=== PATIENT | female | born 1980 | race Caucasian/White ===

== ENCOUNTER 2017-11-12 17:24 | Outpatient (REF) | payer MEDICAID, SELFPAY ==
--- NOTE | 2017-11-12 16:45 | PAPFT_PTH ---
PATIENT: Aurelia King LOC: [facility]#:[id number] AGE/SX: 37/F ROOM: RE11/12/[address]: Lavonne Dsouza : 1980 BED: DIS: 11/12/2017 SPEC #: [id number] RECD: 11/16/17 12:51 STATUS: XAVI MENDOSA #: [id number] REFUGIO: 11/12/17 16:[address]: Lavonne Dsouza DEPT: [facility] Cytology RECD BY: Mary Silveira ENTERED: 11/16/17 12:51 SP TYPE: PAPFT OTHR DR: Juni Lyles Tissues: 1 - CX/ENDOCX FOR PAP SMEARS Procedures: PAP THIN PREP/UVM Screening HPV DNA PROBE Comments: [id number] (CHLAMYDIA/GC)
[2017-11-17 14:48] LABS: Chlamydia Result Negative; GC Result Negative; Specimen Description SEE COMMENTS
== END 2017-11-12 17:25 ==
LOC: NCHCN 17:24
PROVIDERS: PCP Internal Medicine; Visit Provider Nurse Practitioner
DX: Z11.3 Encounter for screening for infections with a predominantly sexual mode of transmission (principal); Z12.4 Encounter for screening for malignant neoplasm of cervix; Z11.51 Encounter for screening for human papillomavirus (HPV)
CPT/HCPCS: 87491; 87591; 88142; 87624

== ENCOUNTER 2017-12-08 16:32 | Outpatient (REF) | payer MEDICAID, SELFPAY ==
--- NOTE | 2017-12-08 16:26 | ENDO_PTH ---
PATIENT: Aurelia King LOC: [facility] U#:[id number] AGE/SX: 37/F ROOM: RE12/08/[address]: Vahe Arreguin MD : 1980 BED: DIS: 12/08/2017 SPEC #: [id number] RECD: 12/08/17 17:48 STATUS: XAVI REEdyta #: [id number] REFUGIO: 12/08/17 16:[address]: Vahe Arreguin DEPT: Surgical Specimen RECD BY: Mary Silveira ENTERED: 12/08/17 17:49 SP TYPE: Endo OTHR DR: Juni Lyles Tissues: 1 - ENDOCERVICAL BX/CURRETTE Procedures: GROSS AND MICRO LEVEL 4 Comments: [id number] (TISSUE DID NOT SURVIVE PROCESSING PER [facility])
== END 2017-12-08 16:52 ==
LOC: LBN 16:32
PROVIDERS: PCP Internal Medicine; Visit Provider Obstetrics & Gynecology
DX: R87.610 Atypical squamous cells of undetermined significance on cytologic smear of cervix (ASC-US) (principal); Z97.5 Presence of (intrauterine) contraceptive device
CPT/HCPCS: 88305

== ENCOUNTER 2018-11-04 16:56 | Outpatient (REF) | payer MEDICAID, SELFPAY ==
[2018-11-04 20:46] LABS: HCT 42.1 % (36.0-46.0); HGB 14.2 g/dL (12.0-15.5); Mean Corp. HGB Concentration 33.7 g/dL (32.0-36.0); Mean Corpuscular Hemoglobin 28.7 pg (27.0-33.0); Mean Corpuscular Volume 85.1 fL (80-95); Mean Platelet Volume 9.7 fL (8.0-11.0); Platelet Count 333 x1000/uL (130-400); RBC 4.95 m/cumm (4.00-5.20); RBC Distribution Width 12.3 % (11.7-14.6); White Blood Cell Count 6.72 k/cumm (4.4-10.8)
[2018-11-04 21:05] LABS: FREE T4 0.82 ng/dL (0.76-1.46); TSH 0.89 uIU/mL (0.36-3.74)
== END 2018-11-04 17:16 ==
LOC: NCHCN 16:56
PROVIDERS: PCP Internal Medicine; Visit Provider Internal Medicine
DX: R53.83 Other fatigue (principal); R63.5 Abnormal weight gain
CPT/HCPCS: 85027; 84439; 84443

== ENCOUNTER 2019-05-04 02:11 | Outpatient (CLI) | payer MEDICAID, SELFPAY ==
[2019-05-04] MEDS: Normal Saline Flush 10 ML SYR IVP (09:14)
[2019-05-04] MEDS: Gadoterate meglumine 20 ML VIAL 17 ML IVP (09:15)
--- NOTE | 2019-05-04 09:23 | DI.MRI_ITS ---
EXAM: MR IAC BRAIN WO/W CLINICAL HISTORY: VERTIGO, R42, LT AUDITORY CANAL/INNER EAR. TECHNIQUE: Routine multiplanar multisequence MRI was performed of the entire brain plus post gadolin ium T1 axial images. Thin T1 axial and coronal sequences were performed pre and post IV Dotarem thro ugh the internal auditory canals. COMPARISON: No exams were available for comparison FINDINGS: There is mucous retention at the floor of the right maxillary sinus and mucosal thickening of some et hmoid sinuses. The mastoid air cells are clear. There is no evidence of an acoustic neuroma or other CP angle mass. The brain has a normal appearance. No mass, hemorrhage or infarct is seen. The vas cular flow voids appear intact. There are no abnormal high signal lesions in the white matter. Ther e are no abnormal enhancing lesions in the brain or internal auditory canals. The orbits and pituita ry are unremarkable. IMPRESSION: Negative MRI of the brain and internal auditory canals. DATA REPOSITORY:
== END 2019-05-04 02:31 ==
PROVIDERS: PCP Internal Medicine; Visit Provider Internal Medicine
DX: R42 Dizziness and giddiness (principal)
CPT/HCPCS: 70553

== ENCOUNTER 2020-09-19 16:06 | Outpatient (CLI) | payer MEDICAID, SELFPAY ==
[2020-09-20 15:08] LABS: Lyme Ab w Rflx to Lyme Confirm Positive (Negative)
[2020-09-23 15:41] LABS: IgG Immunoblot Negative (Negative); IgM Band(s) p23; IgM Immunoblot Negative (Negative)
== END 2020-09-19 16:07 | disposition home or self-care (01) ==
LOC: LBO 16:07
PROVIDERS: PCP Internal Medicine; Visit Provider Nurse Practitioner Family
DX: S30.861A Insect bite (nonvenomous) of abdominal wall, initial encounter (principal); W57.XXXA Bitten or stung by nonvenomous insect and other nonvenomous arthropods, initial encounter
CPT/HCPCS: 36415; 86617; 86618

== ENCOUNTER 2020-10-08 03:51 | Outpatient (CLI) | payer MEDICAID, SELFPAY ==
[2020-10-09 12:02] LABS: Lyme Ab w Rflx to Lyme Confirm Positive (Negative)
[2020-10-09 16:16] LABS: Lyme IgG Ab Negative (Negative); Lyme IgM Ab Positive (Negative)
== END 2020-10-08 03:52 | disposition home or self-care (01) ==
LOC: LBO 03:51
PROVIDERS: PCP Internal Medicine; Visit Provider Nurse Practitioner Family
DX: R53.83 Other fatigue (principal); S30.861A Insect bite (nonvenomous) of abdominal wall, initial encounter; W57.XXXA Bitten or stung by nonvenomous insect and other nonvenomous arthropods, initial encounter
CPT/HCPCS: 36415; 86617; 86618

== ENCOUNTER 2021-01-06 08:59 | Outpatient (REF) | payer MEDICAID, SELFPAY ==
[2021-01-06 15:08] LABS: HCT 43.6 % (36.0-46.0); HGB 14.2 g/dL (11.2-15.7); MCH 28.1 pg (27.0-33.0); MCHC 32.6 % (32.0-36.0); MCV 86.2 fL (80-95); MPV 9.5 fL (8.0-11.0); Platelet Count 297 10^3/uL (130-400); RBC 5.06 10^6/uL (3.93-5.22); WBC 6.65 10^3/uL (4.4-10.8)
[2021-01-06 15:39] LABS: ALT 76 U/L (14-59); AST 38 U/L (15-37); Albumin 4.1 g/dL (3.4-5.0); Alkaline Phosphatase 109 U/L (46-116); Anion Gap 10.4 mmol/L (3-11); BUN 13 mg/dL (7-18); Bilirubin, Total 0.6 mg/dL (0.2-1.0); CO2 25.6 mmol/L (21.0-32.0); CREATININE 0.9 mg/dL (0.55-1.02); Calcium 8.9 mg/dL (8.5-10.1); Chloride 104 mmol/L (98-107); FREE T4 0.86 ng/dL (0.76-1.46); Glucose 96 mg/dL (74-106); Potassium 4.3 mmol/L (3.5-5.1); Sodium 140 mmol/L (136-145); TSH 0.66 uIU/mL (0.36-3.74)
== END 2021-01-06 09:00 | disposition home or self-care (01) ==
LOC: NCHCN 08:59
PROVIDERS: PCP Internal Medicine; Visit Provider Internal Medicine
DX: R53.83 Other fatigue (principal); F11.20 Opioid dependence, uncomplicated; F90.0 Attention-deficit hyperactivity disorder, predominantly inattentive type
CPT/HCPCS: 80053; 85027; 84439; 84443

== ENCOUNTER 2021-02-10 16:05 | Outpatient (REF) | payer MEDICAID, SELFPAY ==
--- NOTE | 2021-02-10 13:45 | PAPFT_PTH ---
PATIENT: Aurelia King LOC: [facility] U#:[id number] AGE/SX: 40/F ROOM: RE02/10/[address]: Mari Laura NP : 1980 BED: DIS: 02/10/2021 SPEC #: [id number] RECD: 02/10/21 17:51 STATUS: XAVI REQ #: [id number] REFUGIO: 02/10/21 13:[address]: Keya DEVLIN,Mari DEPT: [facility] Cytology RECD BY: Mary Silveira ENTERED: 02/10/21 17:51 SP TYPE: PAPFT OTHR DR: Juni Lyles Tissues: 1 - CX/ENDOCX FOR PAP SMEARS Procedures: PAP THIN PREP/UVM Screening HPV DNA PROBE Comments: [id number]
== END 2021-02-10 16:06 | disposition home or self-care (01) ==
LOC: LBN 16:05
PROVIDERS: PCP Internal Medicine; Visit Provider Nurse Practitioner Women's Health
DX: Z12.4 Encounter for screening for malignant neoplasm of cervix (principal); Z11.51 Encounter for screening for human papillomavirus (HPV); R87.612 Low grade squamous intraepithelial lesion on cytologic smear of cervix (LGSIL); R87.810 Cervical high risk human papillomavirus (HPV) DNA test positive
CPT/HCPCS: 88142; 87624

== ENCOUNTER 2021-03-10 02:20 | Outpatient (CLI) | payer MEDICAID, SELFPAY ==
--- NOTE | 2021-03-10 07:30 | DI.MAMMO_ITS ---
Exam(s) MAMMO SCREENING EXAM: MAMMO SCREENING CLINICAL HISTORY: screening. TECHNIQUE: Bilateral full field digital CC and MLO mammographic images were obtained with 3D tomosyn thesis and utilizing computer aided detection (CAD). COMPARISON: None. This is a baseline screening mammogram on this 41-year-old patient. FINDINGS: There are no CAD designations There are no spiculated masses nor malignant appearing microcalcification groups. Benign microcalcifications noted bilaterally. There is no significant architectural distortion nor skin thickening-retraction. IMPRESSION: No radiographic evidence of malignancy. BI-RADS Category 1 - Negative Breast Density - Category B - Scattered areas of fibroglandular density Breast density Category C or D implies that the patient has dense breast tissue. Dense breast tissue can make it harder to find cancer on a mammogram. Dense breast tissue is also associated with an incr eased risk of breast cancer. This information about the result of the mammogram report was provided to the patient to raise their awareness. Use this report when you speak with the patient about their risks for breast cancer, which includes their family history. At that time, you may recommend additional screening tests (Ultrasoun d or MRI) as these tests may add significant information. A negative radiographic report should not delay biopsy if a dominant or clinically suspicious mass is present. Up to ten percent of cancers are not identified on mammography. A negative report may reinforce clinical impression. Adenosis and dense breasts may obscure an underlying neoplasm. False positive reports average 6 to 10%. Patient will receive a letter notifying them of these results.
== END 2021-03-10 02:40 ==
PROVIDERS: PCP Internal Medicine; Visit Provider Nurse Practitioner Women's Health
DX: Z12.31 Encounter for screening mammogram for malignant neoplasm of breast (principal)
CPT/HCPCS: 77063; 77067

== ENCOUNTER 2021-08-14 14:53 | Emergency (ER) | payer MEDICAID, SELFPAY ==
[2021-08-14 14:57] VITALS: BP 107/68; PULSE 91; RESP 16; TEMP 36.8; O2SAT 99
--- NOTE | 2021-08-14 15:49 | W.ED.GENAD ---
Discharge Plan Disposition Patient Disposition: HOME Condition: Good Discharge Details Clinical Impression: Dog bite of left thigh Primary Care Provider: Juni Lyles ED Provider: Jose Ramon Knapp Home Meds and New Rx's Prescriptions: New amoxicillin-pot clavulanate 875-125 mg tablet 1 tab PO Q12H 5 Days Qty: 10 0RF No Action buprenorphine-naloxone [Suboxone] 1 EACH film 2 film Sublingual DAILY Qty: 2 Label Comments: Mirena 1 EACH intrauterine device 1 ea Intrauterine q5yr Qty: 1 Vyvanse 20 mg capsule 1 cap PO DAILY Label Comments: TAKE ONE CAPSULE BY MOUTH EVERY DAY Discharge Instructions Instructions: Animal Bite (ED) Additional Instructions: It is recommended that you take a probiotic while on your antibiotic. Please take this at least 2 hours after your antibiotic dose. You may continue to take [id number] ibuprofen or Tylenol as needed for discomfort and perform standard wound care with antibiotic ointment for the next 48 hours and then allow wound to be clean and dry. If you develop any new or worsening symptoms or have signs of infection after you finish your antibiotic please return to the emergency department for reassessment or follow-up with your primary care provider. Referrals: Juni Lyles MD [Primary Care Provider] - (As needed for reassessment) Discharge Data Discharge Date/Time-TO BE ENTERED AT DEPARTURE: 08/14/21 16:23 Medical Decision Making Dog bite left anterior distal thigh. No other injury or trauma. 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 We will plan to place patient on Augmentin due to dog bite and high suspicion of potential infection due to bite through dirty work pants. Do not feel that radiological imaging needs to be performed at this time, wound is otherwise clean and dry, acute wound care was discussed with patient along with return and follow-up precautions. After discussion of diagnosis and plan of care patient has no further needs, questions, or concerns and states clear understanding to return to the emergency department for any worsening symptoms. HPI General Mode of arrival: ambulatory. Date/Time Provider Initiated Documentation: 08/14/21 15:02. Limitations to Documentation: no limitations. Information obtained by: patient and RN notes reviewed. History of Present Illness 41 year old F presents to the emergency department with the chief complaint of dog bite at work, left leg, described as mild, with intensity rated at 5. Quality is described as aching, and is localized to the left and lower extremity. Patient reports no radiation. Patient started experiencing this hour(s) (1) and it has been constant. No relieving factors improve symptom(s), No exacerbating factors reported . Patient notes no other symptoms.. Patient did receive the following treatments prior to arrival, none Related Data Home Medications Medication Instructions Recorded Confirmed buprenorphine 8 mg-naloxone 2 mg 2 film sublingual DAILY #2 film 11/23/13 08/14/21 sublingual film (Suboxone) levonorgestrel 20 mcg/24 hours (7 1 ea intrauterine q5yr #1 ea 08/26/16 08/14/21 yrs) 52 mg intrauterine device (Mirena) amoxicillin 875 mg-potassium 1 tab PO Q12H 5 days #10 tabs 08/14/21 clavulanate 125 mg tablet lisdexamfetamine 20 mg capsule 1 cap PO DAILY 08/14/21 08/14/21 (Vyvanse) Previous Rx's Medication Instructions Recorded amoxicillin 875 mg-potassium 1 tab PO Q12H 5 days #10 tabs 08/14/21 clavulanate 125 mg tablet Allergies Allergy/AdvReac Type Severity Reaction Status Date / Time No Known Drug Allergies Allergy Unverified 08/14/21 15:02 General Stated Complaint: AnimalBite BRENDA: 4 Review of Systems Narrative: 6 systems reviewed and are unremarkable except for noted below and HPI Integumentary/Breasts Skin/Breast: Reports as per HPI, Denies erythema, Denies rash and Reports wounds PFSH All Active Problems Dog bite of left thigh (Acute) Low back pain (Acute) Medical History Attention deficit disorder (ADD) in adult Depression Fatigue Herpes labialis HPV (human papilloma virus) anogenital infection Lyme disease Migraine 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/15) ASCUS/HPV+, benign colp 2017 LSIL/HPV+, colp 2020 Opioid dependence Pelvic pain Situational anxiety Surgical History Cholecystectomy (07/15/16) Family History Father Diabetes Social History Smoking/Tobacco Use Status: Never Smoking risk assessment performed?: Yes Alcohol Intake: never Drug use: Never Substance use type: does not use Adopted: No Seatbelt use: always Do you feel safe at home: Yes Do you feel safe in your relationship?: Yes Female Reproductive History Menstrual control method: progestin IUCD Exam Const General: cooperative, no acute distress and not ill appearing Orientation: alert, awake and oriented x3 Resp Effort & Inspection: normal respiratory effort, able to speak in complete sentences and no respiratory distress Skin Trauma: puncture (dog bite 6cm candida to left thigh) Neuro General: patient alert, patient awake, patient oriented x3, moves all extremities and no focal motor deficits Sensory Exam: no sensory deficits noted Course Vital Signs Vital signs: Vital Signs Temperature 36.8 C 08/14/21 14:57 Pulse 91 H 08/14/21 14:57 Respiratory Rate 16 08/14/21 14:57 Blood Pressure 107/68 08/14/21 14:57 Pulse Oximetry 99 08/14/21 14:57 Temperature 36.8 C 08/14/21 14:57 Temperature Source Skin 08/14/21 14:57 Pulse 91 H 08/14/21 14:57 Respiratory Rate 16 08/14/21 14:57 Respiratory Effort 08/14/21 15:01 Blood Pressure 107/68 08/14/21 14:57 Blood Pressure Position Sitting 08/14/21 14:57 Pulse Oximetry 99 08/14/21 14:57 Oxygen Delivery Method Room Air 08/14/21 14:57 Oxygen Flow Rate 0 08/14/21 14:57 Pain Level 5 08/14/21 14:57
[2021-08-14] MEDS: Bacitracin 1 PACKET (16:24)
== END 2021-08-14 16:23 | disposition home or self-care (01) ==
PROVIDERS: Emergency Provider Nurse Practitioner Family; PCP Internal Medicine
DX: S71.152A Open bite, left thigh, initial encounter (principal); W54.0XXA Bitten by dog, initial encounter
CPT/HCPCS: 90471; 99284; 99283

== ENCOUNTER 2022-01-22 00:02 | Emergency (ER) | payer MEDICAID, SELFPAY ==
[2022-01-22 00:08] VITALS: BP 120/71; PULSE 104; RESP 16; TEMP 37.9; O2SAT 99
--- NOTE | 2022-01-22 00:15 | DI.CT_ITS ---
Exam(s) CT NECK W EXAM: CT NECK W CLINICAL HISTORY: throat pain, ?retropharyngeal abscess. TECHNIQUE: Imaging Protocol: Axial computed tomography images with coronal and sagittal reformatted images were created and reviewed. CONTRAST MATERIAL: Intravenous: Omnipaque 350 Contrast volume:100mL COMPARISON: No exams were available for comparison FINDINGS: Orbits and orbital soft tissues: Within normal limits. Visualized paranasal sinuses: There is mild mucosal thickening in the right maxillary sinus. The re maining visualized paranasal sinuses or mastoid air cells are clear. Nasopharynx: There is a small small fluid level of the nasopharynx. There is mild hyperemia of the mucosa in the nasopharynx. Oropharynx: Within normal limits. Hypopharynx: Within normal limits. Larynx: Within normal limits. Retropharyngeal space: Within normal limits. Parotids/submandibular: Within normal limits. Thyroid gland: Within normal limits. Lymphadenopathy: There is scattered lymph nodes seen along the level one to level three all measurin g less than 8 mm in short axis diameter which are physiologic in nature. Trachea: Within normal limits. Lung apices: Within normal limits. Bones: Within normal limits for the patient's age. There is mild reversal of the normal cervical albertina dosis. This may be due to patient positioning. Carotids/Jugular: Within normal limits. Soft tissues: Within normal limits. IMPRESSION: 1. Small fluid level in the nasopharynx and findings suggesting pharyngitis. 2. No focal fluid collection to suggest an abscess. RADIATION DOSE DELIVERED: 355.19mGy.cm Total DLP DATA REPOSITORY: All CT scans at this facility are submitted to the National Radiology Data Registry (NRDR) Dose Index Registry (DIR) with the [employer] (A[employer]). RADIATION OPTIMIZATION: All CT scans at this facility use at least one of these dose optimization te chniques: automated exposure control; mA and/or kV adjustment per patient size (includes targeted exa ms where dose is matched to clinical indication); or iterative reconstruction.
--- NOTE | 2022-01-22 00:24 | ED.GENADUL_ITS ---
Discharge Plan Disposition Patient Disposition: HOME Condition: Stable Discharge Details Clinical Impression: Pharyngitis Primary Care Provider: Juni Lyles ED Provider: Nikos Laura Home Meds and New Rx's Prescriptions: New amoxicillin 500 mg tablet 500 mg PO BID Qty: 20 0RF valacyclovir [Valtrex] 1 gram tablet 2,000 mg PO ONCE Qty: 2 0RF Continued buprenorphine-naloxone [Suboxone] 1 EACH film 2 film Sublingual DAILY Qty: 2 Label Comments: Mirena 1 EACH intrauterine device 1 ea Intrauterine q5yr Qty: 1 Vyvanse 20 mg capsule 1 cap PO DAILY Label Comments: TAKE ONE CAPSULE BY MOUTH EVERY DAY Discharge Instructions Instructions: Pharyngitis (ED) Additional Instructions: if not improving within a week follow up with your primary care provider if you fel more ill, have severe worsening pain or inability to swallow liquids return to the emergency department Medical Decision Making 41 yo female comes in with 3 days of throat pain, body aches and sore throat. she states she went to urgent care wednesday and was diagnosed with flu and started on tamiflu. Despite this she continues to not feel well and throat pain has been worsening so came here. She arrives stable speaking in full sentences in no respiratory distress and swallowing normally. She has clear lungs, midline uvula, posterior pharynx is erythematous, no hot potato voice. She localizes the pain to the posterior pharynx and states it is severe. She has no meninigsmus and full rom of the neck. Suspect this is pharyngitis but given she is stating pain is severe and worsening will obtain ct to evaluate for possible abscess. fluvid negative, labs show wbc of 13 otherwise unremarkable, ct shows no abscess. Given continued throat pain and evidence of pharyngitis on exam will start her on amoxicillin. She states she has a history of cold sores and feels one starting on her lower lip and requests valacyclovir which I will provide. Advised to f/u with pcp, return precautions given Differential Diagnosis Differential Diagnosis: strep, flu, retropharyngeal abscess Medical Records Medical records reviewed: Yes I reviewed the patient's medical records. Imaging Data Radiologic Study: Attestation: I personally reviewed and interpreted this imaging study as follows: Imaging: CT Scan Radiologist's impression: 1. Fluid level in nasopharynx. There appears to be mucosal hyperemia in nasopharynx consistent with pharyngitis. 2. No retropharyngeal fluid collection is seen to suggest retropharyngeal abscess. No peritonsillar abscess. Lab Data Lab results reviewed: Yes I reviewed the patient's lab results. HPI General Mode of arrival: ambulatory . Date/Time Provider Initiated Documentation: 01/22/22 00:03 . Limitations to Documentation: no limitations . Information obtained by: patient . History of Present Illness 41 year old F presents to the emergency department with the chief complaint of sore throat, described as moderate, Patient started experiencing this day(s) (3) and it has been constant. No relieving factors improve symptom(s), No exacerbating factors reported . Patient notes fever/chills. Patient did receive the following treatments prior to arrival, none Related Data Home Medications Medication Instructions Recorded Confirmed buprenorphine 8 mg-naloxone 2 mg 2 film sublingual DAILY #2 film 11/23/13 01/22/22 sublingual film (Suboxone) levonorgestrel 20 mcg/24 hours (8 1 ea intrauterine q5yr #1 ea 08/26/16 01/22/22 yrs) 52 mg intrauterine device (Mirena) lisdexamfetamine 20 mg capsule 1 cap PO DAILY 08/14/21 01/22/22 (Vyvanse) amoxicillin 500 mg tablet 500 mg PO BID #20 tabs 01/22/22 valacyclovir 1 gram tablet 2,000 mg PO ONCE #2 tabs 01/22/22 (Valtrex) Previous Rx's Medication Instructions Recorded amoxicillin 500 mg tablet 500 mg PO BID #20 tabs 01/22/22 valacyclovir 1 gram tablet 2,000 mg PO ONCE #2 tabs 01/22/22 (Valtrex) Allergies Allergy/AdvReac Type Severity Reaction Status Date / Time No Known Drug Allergies Allergy Unverified 01/22/22 00:13 General Stated Complaint: Sorethroat BRENDA: 3 Review of Systems All systems reviewed & are unremarkable except as noted in HPI and below Constitutional Constitutional: Denies weakness ENT Ears, Nose, Mouth, and Throat: Denies change in voice Cardiovascular Cardiovascular: Denies chest pain and Denies dyspnea Respiratory Respiratory: Denies cough and Denies dyspnea Gastrointestinal Gastrointestinal: Denies abdominal pain, Denies nausea and Denies vomiting Genitourinary Genitourinary: Denies dysuria Integumentary/Breasts Skin/Breast: Denies rash Neurologic Neurologic: Denies weakness PFSH All Active Problems (Updated 01/22/22 @ 01:51 by Nikos Laura MD) Pharyngitis (Acute) Low back pain (Acute) Medical History Attention deficit disorder (ADD) in adult Depression Fatigue Herpes labialis HPV (human papilloma virus) anogenital infection Lyme disease Migraine 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/15) ASCUS/HPV+, benign colp 2017 LSIL/HPV+, colp 2020 Opioid dependence Pelvic pain Situational anxiety Surgical History Cholecystectomy (07/15/16) Family History Father Diabetes Social History Smoking/Tobacco Use Status: Never Smoking risk assessment performed?: Yes Alcohol Intake: never Drug use: Never Substance use type: does not use Adopted: No Seatbelt use: always Do you feel safe at home: Yes Do you feel safe in your relationship?: Yes Female Reproductive History Menstrual control method: progestin IUCD Exam Const General: no acute distress Orientation: alert HENMT Head: normal to inspection Ears: external ears normal General nose exam: external nose normal Mouth: moist mucous membranes Eyes General: appearance normal, both eyes and all related structures Neck Neck: normal visual inspection Resp Effort & Inspection: normal respiratory effort and able to speak in complete sentences Cardio Rate: regular rate Skin General skin exam: no rashes or lesions noted Neuro General: patient alert and patient oriented x3 Extrem General: normal to inspection Psych Mental Status: mental status grossly normal Course Vital Signs Vital signs: Vital Signs Temperature 37.9 C H 01/22/22 00:08 Pulse 104 H 01/22/22 00:08 Respiratory Rate 16 01/22/22 00:08 Blood Pressure 120/71 01/22/22 00:08 Pulse Oximetry 99 01/22/22 00:08 Temperature 37.9 C H 01/22/22 00:08 Temperature Source Temporal Artery Scan 01/22/22 00:08 Pulse 104 H 01/22/22 00:08 Respiratory Rate 16 01/22/22 00:08 Respiratory Effort 01/22/22 00:08 Blood Pressure 120/71 01/22/22 00:08 Blood Pressure Position Sitting 01/22/22 00:08 Pulse Oximetry 99 01/22/22 00:08 Oxygen Delivery Method Room Air 01/22/22 00:08 Oxygen Flow Rate 0 01/22/22 00:08 Pain Level 10 01/22/22 00:08 Lab/Test Results Lab/Test Results: POC Strep Test-TOVA(Rapid) Start: 01/22/22 00:20 Freq: .Rapid Strep Test Status: Active Protocol: Document 01/22/22 00:24 CB (Rec: 01/22/22 00:24 [id number]) Strep test-TOVA(Rapid)-POC POC-Strep test-TOVA (Rapid) Negative POC-Strep test-TOVA (Rapid) Negative
[2022-01-22 00:41] LABS: Abs Immature Grans 0.04 10^3/uL (0.0-0.06); Absolute Basophil Count 0.05 10^3/uL (0.0-0.2); Absolute Lymphocyte Count 1.65 10^3/uL (1.2-3.4); Absolute Monocyte Count 0.88 10^3/uL (0.1-0.8); Absolute Neutrophil Count 11.04 10^3/uL (1.2-6.7); Basophils % 0.4; Eosinophils % 0.4; HCT 42.9 % (36.0-46.0); HGB 13.8 g/dL (11.2-15.7); Immature Grans % 0.3; MCH 28.3 pg (27.0-33.0); MCHC 32.2 % (32.0-36.0); MCV 88 fL (80-95); MPV 8.7 fL (8.0-11.0); Monocytes % 6.4; Neutrophils % 80.5; Platelet Count 251 10^3/uL (130-400); RBC 4.88 10^6/uL (3.93-5.22); RDW 12.4 % (11.7-14.6); WBC 13.72 10^3/uL (4.4-10.8)
[2022-01-22 00:48] LABS: Absolute Eosinophil Count 0.05 10^3/uL (0.0-0.7)
[2022-01-22] MEDS: Normal Saline 1,000 ML 1000 ML IV (00:50)
[2022-01-22] MEDS: methylPREDNISolone SUCC 125 MG VIAL IVP (00:50)
[2022-01-22] MEDS: Ketorolac 15 MG/ML VIAL IVP (00:52)
[2022-01-22 00:58] LABS: ALT 114 U/L (14-59); AST 32 U/L (15-37); Albumin 3.4 g/dL (3.4-5.0); Alkaline Phosphatase 158 U/L (46-116); Anion Gap 9.5 mmol/L (3-11); BUN 10 mg/dL (7-18); Bilirubin, Total 0.4 mg/dL (0.2-1.0); CO2 28.5 mmol/L (21.0-32.0); CREATININE 0.8 mg/dL (0.55-1.02); Calcium 8.9 mg/dL (8.5-10.1); Chloride 103 mmol/L (98-107); Estimated GFR 95.46 (mL/min/1.73m2); Glucose 106 mg/dL (74-106); Potassium 3.6 mmol/L (3.5-5.1); Sodium 141 mmol/L (136-145); Total Protein 8.3 g/dL (6.4-8.2)
[2022-01-22] MEDS: Omnipaque 350 MG/ML 100 ML BTL IJ (01:06)
[2022-01-22] MEDS: Normal Saline - Diluent 50 ML VIAL IV (01:07)
[2022-01-22 01:08] LABS: COVID-19 PCR Negative (Negative); Influenza A PCR Negative (Negative); Influenza B PCR Negative (Negative); RSV PCR Negative (Negative); Source Nasopharynx
--- NOTE | 2022-01-22 01:41 | DI.VRAD_ITS ---
PROCEDURE INFORMATION: Exam: CT Neck With Contrast Exam date and time: 01/22/2022 12:53 AM Age: 41 years old Clinical indication: Other: Throat pain, ? retropharyngeal abscess TECHNIQUE: Imaging protocol: Computed tomography of the neck with contrast. Contrast material: 350; Contrast volume: 100 ml; Contrast route: INTRAVENOUS (IV); COMPARISON: MR IAC BRAIN WO/W 05/04/2019 8:33 AM FINDINGS: Pharynx: Fluid level in nasopharynx. There appears to be mucosal hyperemia in nasopharynx consistent with pharyngitis. Larynx: Unremarkable. Epiglottis is normal. Prevertebral and retropharyngeal spaces: Unremarkable. Salivary glands: Normal. Glands are normal in size. Thyroid: Normal. No enlarged or calcified nodules. Lymph nodes: Unremarkable. No lymphadenopathy. Trachea: Visualized trachea is unremarkable. Lungs: Unremarkable as visualized. Bones/joints: Unremarkable. No acute fracture. Soft tissues: No retropharyngeal fluid collection is seen to suggest retropharyngeal abscess. No peritonsillar abscess. Other findings: No abscess collection. IMPRESSION: 1. Fluid level in nasopharynx. There appears to be mucosal hyperemia in nasopharynx consistent with pharyngitis. 2. No retropharyngeal fluid collection is seen to suggest retropharyngeal abscess. No peritonsillar abscess. Dictated and Authenticated by: Alex Archer MD. Ordering:SALLY Knott MD
[2022-01-22] MEDS: valACYclovir 1,000 MG TAB 2000 MG PO (02:20)
[2022-01-22] MEDS: Amoxicillin 500 MG CAP PO (02:20)
[2022-01-22 02:39] VITALS: BP 108/83; PULSE 91; RESP 16; TEMP 36.7; O2SAT 96
== END 2022-01-22 02:36 | disposition home or self-care (01) ==
PROVIDERS: Emergency Provider Emergency Medicine; PCP Internal Medicine
DX: J02.9 Acute pharyngitis, unspecified (principal); Z20.822 Contact with and (suspected) exposure to COVID-19
CPT/HCPCS: 36415; 70491; 80053; 87637; 87880; 96361; 96374; 96375; 99285; 85025; 87081; 99284; J1885; J2930; J3490

== ENCOUNTER 2022-04-03 16:06 | Outpatient (REF) | payer MEDICAID, SELFPAY ==
--- NOTE | 2022-04-03 15:00 | PAPFT_PTH ---
PATIENT: Aurelia King LOC: [facility] U#:[id number] AGE/SX: 42/F ROOM: RE04/03/[address]: Luz Morse CNM : 1980 BED: DIS: 04/03/2022 SPEC #: [id number] RECD: 04/03/22 18:01 STATUS: XAVI REEdyta #: [id number] REFUGIO: 04/03/22 15:[address]: Luz Morse DEPT: [facility] Cytology RECD BY: Mary Silveira ENTERED: 04/03/22 18:01 SP TYPE: PAPFT OTHR DR: Juni Lyles Tissues: 1 - CX/ENDOCX FOR PAP SMEARS Procedures: PAP THIN PREP/UVM Screening HPV DNA PROBE Comments: [id number] (HPV 16 & 18/45) (CA/[facility]ATISHA)
[2022-04-05 14:26] LABS: Chlamydia Result Negative (Negative); GC Result Negative (Negative)
== END 2022-04-03 16:07 | disposition home or self-care (01) ==
LOC: LBN 16:06
PROVIDERS: PCP Internal Medicine; Visit Provider Advanced Practice Midwife
DX: R87.810 Cervical high risk human papillomavirus (HPV) DNA test positive (principal)
CPT/HCPCS: 87491; 87591; 88142; 87624

== ENCOUNTER 2022-04-24 00:55 | Outpatient (CLI) | payer MEDICAID, SELFPAY ==
--- NOTE | 2022-04-24 07:30 | DI.MAMMO_ITS ---
Exam(s) MAMMO SCREENING EXAM: MAMMO SCREENING CLINICAL HISTORY: screening TECHNIQUE: Bilateral full field digital CC and MLO mammographic images were obtained with 3D tomosyn thesis and utilizing computer aided detection (CAD). COMPARISON: Available for comparison. FINDINGS: Masses/Architectural Distortion: None seen. Microcalcifications: No suspicious pleomorphic-type are seen. Skin Thickening/Nipple Retraction: None. IMPRESSION: 1. No significant interval change with no specific features of malignancy noted. 2. Unless there is more urgent need, screening mammography is recommended, as per [employer] guidelines. BI-RADS Category 1 - Negative Breast Density - Category B - Scattered areas of fibroglandular density Breast density category C or D implies that the patient has dense breast tissue. Dense breast tissue is very common and is not abnormal but dense breast tissue can make it harder to find cancer on a ma mmogram. Also, dense breast tissue may increase their breast cancer risk. This information about the result of the mammogram report was provided to the patient to raise their awareness. Use this report when you speak with the patient about their risks for breast cancer, which includes their family hist ory. At that time, you may recommend for more screening tests (Ultrasound or MRI) as they might be us eful based on their risk. A negative radiographic report should not delay biopsy if a dominant or clinically suspicious mass is present. Up to ten percent of cancers are not identified on mammography. A negative report may reinforce clinical impression. Adenosis and dense breasts may obscure an underlying neoplasm. False positive reports average 6 to 10%. Patient will receive a letter notifying them of these results.
== END 2022-04-24 01:15 ==
LOC: DI 00:57
PROVIDERS: PCP Internal Medicine; Visit Provider Advanced Practice Midwife
DX: Z12.31 Encounter for screening mammogram for malignant neoplasm of breast (principal)
CPT/HCPCS: 77063; 77067

== ENCOUNTER 2022-04-24 09:25 | Outpatient (REF) | payer MEDICAID, SELFPAY ==
--- NOTE | 2022-04-24 08:40 | ENDO_PTH ---
PATIENT: Aurelia King LOC: [facility] U#:[id number] AGE/SX: 42/F ROOM: RE04/24/[address]: Ella Preciado DO : 1980 BED: DIS: 04/24/2022 SPEC #: [id number] RECD: 04/24/22 12:35 STATUS: XAVI REQ #: [id number] REFUGIO: 04/24/22 08:[address]: Ella Preciado DEPT: Surgical Specimen RECD BY: Mary Silveira ENTERED: 04/24/22 12:36 SP TYPE: Endo OTHR DR: Juni Lyles Tissues: 1 - ENDOCERVICAL BX/CURRETTE 2 - CERVICAL BIOPSY Procedures: GROSS AND MICRO LEVEL 4 Comments: [id number]
== END 2022-04-24 09:26 | disposition home or self-care (01) ==
LOC: LBN 09:25
PROVIDERS: PCP Internal Medicine; Visit Provider Obstetrics & Gynecology
DX: N72 Inflammatory disease of cervix uteri (principal)
CPT/HCPCS: 88305

== ENCOUNTER 2022-05-07 00:42 | Outpatient (CLI) | payer MEDICAID, SELFPAY ==
--- NOTE | 2022-05-07 | DI.US_ITS ---
Exam(s) US PELVIS RENAL EXAM: US PELVIS RENAL CLINICAL HISTORY: URINARY FREQUENCY, R35.0, URINARY URGENCY. TECHNIQUE: Ultrasound renal, pelvic, both transabdominal was performed using standard protocol. The patient elected to forego the transvaginal portion of the examination. COMPARISON: US PELVIS TRANSVAG from 03/27/2015 FINDINGS: RENAL: Renal size in cm: Right: 9.7 left: 12.2 Echogenicity: Normal. Hydronephrosis: No. Cyst or mass: No. Nephrolithiasis: No. Other findings: None. Bladder:The bladder volume was low limiting evaluation. No gross abnormalities identified. Ureteral jets: Right: Not visualized on this examination. Left: Not visualized on this examination. Prevoid vol:44 cc Color: Symmetric and uniform flow to both kidneys. PELVIC: UTERUS: Due to poor patient preparation, uterine evaluation is severely limited. Evaluation is limit ed to size only. Position: Anteverted. Size: 8.4 long by 4.1 AP by 5.3 cm Endometrium: 0.7 cm. Normal for patient's menstrual status. Myometrium: Limited in evaluation. Cervix: Limited in evaluation. OVARIES: The ovaries were not visualized transabdominally. No suspicious adnexal masses are seen. IMPRESSION: 1. Severely limited examination particularly the pelvis and urinary bladder due to decreased bladder volume and transabdominal only examination. 2. Unremarkable kidneys. 3. The urinary bladder cannot be well evaluated and the ovaries were not visualized transabdominally. 4. Normal size of the uterus with a normal endometrial stripe thickness. DATA REPOSITORY:
== END 2022-05-07 01:02 ==
LOC: DI 00:42
PROVIDERS: PCP Internal Medicine; Visit Provider Internal Medicine
DX: R35.0 Frequency of micturition (principal); R39.15 Urgency of urination; N32.89 Other specified disorders of bladder
CPT/HCPCS: 76770; 76856

== ENCOUNTER 2022-08-07 10:35 | Outpatient (REF) | payer MEDICAID, SELFPAY ==
[2022-08-10 11:39] LABS: Lyme Ab w Rflx to Lyme Confirm Negative (Negative)
[2022-08-12 13:00] LABS: Anaplasma phagocytophilum Negative (Negative); B. miyamotoi PCR Negative (Negative); Babesia divergens/MO-1 Negative (Negative); Babesia duncani Negative (Negative); Babesia microti Negative (Negative); Ehrlichia chaffeensis Negative (Negative); Ehrlichia ewingii/canis Negative (Negative); Ehrlichia muris eauclairensis Negative (Negative)
== END 2022-08-07 10:36 | disposition home or self-care (01) ==
LOC: LBN 10:35
PROVIDERS: PCP Internal Medicine; Visit Provider Physician Assistant Medical
DX: W57.XXXA Bitten or stung by nonvenomous insect and other nonvenomous arthropods, initial encounter (principal); T14.8XXA Other injury of unspecified body region, initial encounter
CPT/HCPCS: 87798; 86618; 87070

== ENCOUNTER 2022-08-11 03:52 | Outpatient (CLI) | payer MEDICAID, SELFPAY ==
[2022-08-11 15:43] LABS: Abs Immature Grans 0.02 10^3/uL (0.0-0.06); Absolute Basophil Count 0.04 10^3/uL (0.0-0.2); Absolute Eosinophil Count 0.03 10^3/uL (0.0-0.7); Absolute Monocyte Count 0.46 10^3/uL (0.1-0.8); Absolute Neutrophil Count 3.79 10^3/uL (1.2-6.7); Basophils % 0.6; Eosinophils % 0.4; HCT 40.8 % (36.0-46.0); HGB 13.5 g/dL (11.2-15.7); Immature Grans % 0.3; Lymphocytes % 36.5; MCH 28.4 pg (27.0-33.0); MCHC 33.1 % (32.0-36.0); MCV 86 fL (80-95); MPV 8.7 fL (8.0-11.0); Monocytes % 6.7; Neutrophils % 55.5; Platelet Count 286 10^3/uL (130-400); RBC 4.76 10^6/uL (3.93-5.22); RDW-SD 38.1 fL; WBC 6.84 10^3/uL (4.4-10.8)
== END 2022-08-11 03:53 | disposition home or self-care (01) ==
LOC: LBO 03:52
PROVIDERS: PCP Internal Medicine; Visit Provider Obstetrics & Gynecology
DX: Z30.09 Encounter for other general counseling and advice on contraception (principal); Z01.818 Encounter for other preprocedural examination; Z01.812 Encounter for preprocedural laboratory examination
CPT/HCPCS: 36415; 86850; 86900; 86901; 85025

== ENCOUNTER 2022-08-11 16:04 | Outpatient (REF) | payer MEDICAID, SELFPAY ==
[2022-08-11 16:30] LABS: Source Nasal/Nares
[2022-08-11 17:27] LABS: COVID-19 PCR Negative (Negative)
== END 2022-08-11 16:05 | disposition home or self-care (01) ==
LOC: LBN 16:04
PROVIDERS: PCP Internal Medicine; Visit Provider Obstetrics & Gynecology
DX: Z20.822 Contact with and (suspected) exposure to COVID-19 (principal); Z30.09 Encounter for other general counseling and advice on contraception; Z01.818 Encounter for other preprocedural examination
CPT/HCPCS: 87635

== ENCOUNTER 2022-08-13 08:10 | Day surgery (SDC) | payer MEDICAID, SELFPAY ==
[2022-08-13] VITALS (11 sets, daily range): BP systolic 95–124; BP diastolic 61–89; PULSE 64–92; RESP 12–19; TEMP 36.3–36.6; O2SAT 96–100; BMI 30.3
--- NOTE | 2022-08-13 07:06 | W.ANESPRE ---
General Info Date of Service Date Performed: 08/13/22 Height: 5 ft 6 in Weight: 85.275 kg Body Mass Index (BMI): 30.3 Surgical Procedure: Operation Date: 08/13/22 09:10 Proposed Procedure Side Surgeon p Salpingectomy Laparoscopic Bilateral Ella Preciado DO Meds Allergies and Home Medications Allergies Allergy/AdvReac Type Severity Reaction Status Date / Time latex Allergy Intermediate Skin Rash Unverified 08/13/22 08:34 No Known Drug Allergies Allergy Unverified 08/13/22 08:34 Chapstick Allergy Intermediate Swelling/Ed Uncoded 08/13/22 08:34 mikey Home Medication Medication Instructions Recorded buprenorphine 8 mg-naloxone 2 mg 2 film sublingual DAILY #2 film 11/23/13 sublingual film (Suboxone) levonorgestrel 21 mcg/24 hours (8 1 ea intrauterine q5yr #1 ea 08/26/16 yrs) 52 mg intrauterine device (Mirena) lisdexamfetamine 20 mg capsule 1 cap PO DAILY 08/14/21 (Vyvanse) valacyclovir 1 gram tablet 2,000 mg PO ONCE #2 tabs 01/22/22 (Valtrex) doxycycline hyclate 100 mg capsule 100 mg PO BID 08/12/22 Current Visit Medications: Current Medications Generic Name Dose Route Start Last Admin Trade Name Freq PRN Reason Stop Dose Admin Ringer's Solution 1,000 mls @ 125 mls/hr 08/13/22 06:00 IV 09/11/22 23:59 INFUSION ALLISON IV Miscellaneous Supplies 1 each 08/13/22 06:00 Iv Access IV 09/11/22 23:59 DIRECTED ALLISON Sodium Chloride 0 ml 08/13/22 06:00 Normal Saline Flush 10 Ml Syr IV 09/11/22 23:59 PRN PRN Sodium Chloride 0 ml 08/13/22 06:00 Normal Saline 10 Ml Vial IJ 09/11/22 23:59 DIRECTED PRN Sterile Water 0 ml 08/13/22 06:00 Water,Injection,Sterile 10 Ml Vial IJ 09/11/22 23:59 DIRECTED PRN PFSH Active Problems Active Problems: Problem Status Onset Code Encounter for counseling regarding contraception Z30.09 Abnormal Pap smear of cervix R87.619 Low back pain M54.50 Medical History Medical History Attention deficit disorder (ADD) in adult Depression Fatigue Herpes labialis HPV (human papilloma virus) anogenital infection Lyme disease Migraine 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/15) ASCUS/HPV+, benign colp 2017 LSIL/HPV+, colp 2020 Opioid dependence Pelvic pain Situational anxiety Surgical History Surgical History Cholecystectomy (07/15/16) Tobacco Smoking/Tobacco Use Status: Never Alcohol Alcohol Intake: never Substance Use Substance use: Current Sobriety Vital Signs and Lab Results Lab Results Blood Type / Crossmatch: Patient ABO/Rh A Positive 08/11/22 Antibody Screen NEGATIVE 08/11/22 Complete Blood Count: White Blood Count 6.84 10^3/uL (4.4-10.8) 08/11/22 15:39 Red Blood Count 4.76 10^6/uL (3.93-5.22) 08/11/22 15:39 Hemoglobin 13.5 g/dL (11.2-15.7) 08/11/22 15:39 Hematocrit 40.8 % (36.0-46.0) 08/11/22 15:39 Platelet Count 286 10^3/uL (130-400) 08/11/22 15:39 Complete Metabolic Panel: No Data to Display Liver Function Panel: No Data to Display Coagulation Panel: No Data to Display Cardiac Panel: No Data to Display Arterial Blood Gas: No Data to Display Venous Blood Gas: No Data to Display Pancreas Panel: No Data to Display Thyroid Panel: No Data to Display Infectious Disease: Coronavirus (COVID-19)(PCR) Negative (Negative) 08/11/22 16:00 Coronavirus 2019 Source Nasal/Nares 08/11/22 16:00 Blood Cultures: No Data to Display Toxicology Panel: No Data to Display Panel: No Data to Display Anesthesia Assessment and Plan Anesthesia History Personal History: No History of Anesthesia Complications Family History: No Family History of Anesthesia Complications Exercise Tolerance Exercise Tolerance: Metabolic Equivalents>4 Pertinent Negatives Pertinent Negatives: No Symptoms of GERD, No Major Cardiovascular Symptoms or Complaints, No Major Pulmonary Symptoms or Complaints and No History of CVA/TIA Cardiac & Pulmonary Exam Cardiac Exam: Normal S1/S2 Heart Sounds Pulmonary Exam: Clear Bilateral Breath Sounds Implantable Cardiac Device Does patient have a Pacemaker or an ICD?: No Airway Exam Known Difficult Airway: No Mallampati Class: 2 Mouth Opening: Normal (> 3cm) Thyromental Distance: Greater than 3 cm Neck Range of Motion: Full ROM Neck Circumference: Normal Teeth Condition: Normal Dentition ASA Classification ASA Score: ASA 2 Emergency Case?: No NPO Status NPO Status: NPO Clears >2 hours, Solids >8 hours Status Status: Negative HCG Anesthesia Plan Resuscitation Status: Full Code Anesthesia Technique: General Anesthesia Airway Planned: Endotracheal Tube Monitors Used: Standard Monitors Preoperative Comments:: some nausea this morning. Per patient anxiety related. Treated with zofran and improved. Patient requesting something for her anxiety, denies any further nausea or urge to vomit. Midazolam to be given.
[2022-08-13] MEDS: Lactated Ringers 1,000 ML 125 ML IV (09:00)
[2022-08-13] MEDS: Ondansetron 4 MG/2 ML VIAL IVP (09:54)
--- NOTE | 2022-08-13 10:44 | FALL_PTH ---
PATIENT: Aurelia King LOC: [facility] U#:[id number] AGE/SX: 42/F ROOM: RE08/13/[address]: Ella Preciado DO : 1980 BED: DIS: 08/13/2022 SPEC #: [id number] RECD: 08/13/22 12:55 STATUS: XAVI RE #: [id number] REFUGIO: 08/13/22 10:[address]: Ella Preciado DEPT: Surgical Specimen RECD BY: Mary Silveira ENTERED: 08/13/22 12:55 SP TYPE: Fall OTHR DR: Juni Lyles Tissues: 1 - FALLOPIAN TUBE (STERILIZATION) 2 - FALLOPIAN TUBE (STERILIZATION) Procedures: GROSS AND MICRO LEVEL 2 Comments: [id number]
--- NOTE | 2022-08-13 10:54 | W.PM.OP ---
Date of service: 08/13/22 Time of Service: 10:54 Operative Note Operative Note DATE OF PROCEDURE: 08/13/22 PRE-OP DIAGNOSIS: Undesired fertility POST-OP DIAGNOSIS: same PROCEDURE: Laparoscopic bilateral salpingectomy SURGEON: Ella Preciado ASSISTING SURGEON: Amber Rasmussen ANESTHESIA TYPE: Local By Surgeon and General LMA/ETT Refer to Anesthesia Record ESTIMATED BLOOD LOSS: 5 PATHOLOGY: other (1. Right fallopian tube 2. Left fallopian tube) COMPLICATIONS: None Patient was transported to: PACU Patient's condition: stable Indications: Undesired fertility Findings: Normal-appearing tubes, ovaries, uterus Procedure Description: After full informed consent was obtained, patient was taken the operating suite with an IV running. She is placed in the dorsal supine position and endotracheal intubation performed for the administration of general anesthesia with ease. She was then placed in the modified dorsolithotomy position and prepped and draped in the usual sterile fashion. She had pneumatic compression stockings for DVT prophylaxis. No antibiotics were necessary. Exam under anesthesia revealed a uterus that was midline and mobile. Speculum was inserted in the vaginal vault and IUD string identified. A Hulka uterine manipulator was placed within for uterine manipulation during the procedure. Speculum was then removed. Attention was then turned to the abdomen where after infiltration of quarter percent Marcaine a small umbilical incision was made. Penetrating towel clips were used to lift the anterior abdominal wall and the varies needle was inserted directly into the abdomen. Pneumoperitoneum was created with CO2 gas to a maximum pressure of 15 mmHg. Varies needle was then removed and a bladeless Optiview 12 mm trocar was placed under direct visualization. The abdomen was inspected and found to be free of trauma or disease. A second and third right and left lower quadrant trocar site was placed after infiltration of quarter percent Marcaine. At this point the uterus was elevated and attention turned to the right fallopian tube which was elevated elevated and cautery transected. This was removed for the 10 mm port. Similar procedure was carried out on the left fallopian tube. Pedicles were hemostatic CO2 gas was discontinued. No evidence of bleeding was noted. At this point the trocars were removed and the infraumbilical fascial incision was closed using 0 Vicryl suture. Subcutaneous tissues were reapproximated and Steri-Strips and sterile dressings were placed. The Hulka uterine manipulator was then removed and the from the cervix. At this point the patient was returned to the dorsal supine position and awoke from anesthesia with ease. She was taken to the postanesthesia care unit in stable condition Pathology 1. Right fallopian tube 2. Left fallopian tube Complications: None apparent Fluids: Crystalloid per anesthesia Findings: Normal tubes, ovaries, uterus. IUD in situ.
[2022-08-13] MEDS: LORazepam 2 MG/ML VIAL 0.5 MG IVP (11:29)
[2022-08-13] MEDS: ACETAMINOPHEN 1,000 MG/100 ML BTL 400 MG IVPB (11:40)
[2022-08-13] MEDS: fentaNYL 100 MCG/2 ML VIAL IVP (12:19)
--- NOTE | 2022-08-13 13:28 | W.ANESPOSTOP ---
Postoperative Evaluation Date, Time and Location Date Performed: 08/13/22 Time Performed: 13:29 Patient Location: Day Surgery Unit Vital Signs Most Recent Imported Vital Signs: Most Recent Vital Signs Temp Pulse Resp BP Pulse Ox 36.4 C L 81 18 113/79 100 08/13/22 13:00 08/13/22 13:00 08/13/22 13:00 08/13/22 13:00 08/13/22 13:00 Pain Score Most Recent Pain Score: Most Recent Pain Score Pain Level 2 08/13/22 13:00 Assessment Mental Status: Awake (Alert & Oriented to Patient Baseline) Airway and Respiratory Function: Patent airway with normal (patient baseline) respiratory exam Cardiovascular Function: Hemodynamically Stable Hydration Status: Adequately Hydrated Nausea & Vomiting: No Nausea or Vomiting Pain: Pain is tolerable per patient Peripheral Nerve Block: Patient did not receive a nerve block
== END 2022-08-13 13:39 | disposition home or self-care (01) ==
PROVIDERS: PCP Internal Medicine; Visit Provider Obstetrics & Gynecology
PROC: (CPT 58661; principal; 2022-08-13 09:00)
DX: Z30.2 Encounter for sterilization (principal)
CPT/HCPCS: 58661; 81025; 88302; J0131; J1100; J1885; J2001; J2060; J2250; J2405; J3010

== ENCOUNTER 2023-06-24 08:40 | Outpatient (CLI) | payer SELFPAY ==
[2023-06-24 08:52] LABS: ESR 10 mm/hr (0-20)
[2023-06-24 09:39] LABS: C-Reactive Protein < 0.50 mg/dL (<or=0.5)
[2023-06-24 17:55] LABS: Rheumatoid Factor <8.6 IU/mL (<12.0)
[2023-06-25 15:27] LABS: ANA Interpretation Negative (Negative)
== END 2023-06-24 08:41 | disposition home or self-care (01) ==
LOC: LBO 08:40
PROVIDERS: PCP Nurse Practitioner Family; Visit Provider Nurse Practitioner Family
DX: G89.29 Other chronic pain (principal)
CPT/HCPCS: 36415; 85652; 86038; 86140; 86431

== ENCOUNTER 2023-07-15 14:34 | Outpatient (REF) | payer BC, SELFPAY ==
[2023-07-15 16:23] LABS: Bilirubin Negative (Negative); Blood Negative (Negative); Clarity Clear (Clear); Glucose Negative (Negative); Ketones Negative (Negative); Leukocyte Esterase Negative (Negative); Nitrite Negative (Negative); pH 8.5 (5-8)
== END 2023-07-15 14:35 | disposition home or self-care (01) ==
LOC: NCHCN 14:34
PROVIDERS: PCP Nurse Practitioner Family; Visit Provider Nurse Practitioner Family
DX: R35.0 Frequency of micturition (principal)
CPT/HCPCS: 81003

== ENCOUNTER 2023-10-05 09:06 | Outpatient (CLI) | payer BC, SELFPAY ==
[2023-10-06 11:30] LABS: Lyme Ab w Rflx to Lyme Confirm Negative (Negative)
[2023-10-07 14:25] LABS: Anaplasma phagocytophilum Negative (Negative); B. miyamotoi PCR Negative (Negative); Babesia divergens/MO-1 Negative (Negative); Babesia duncani Negative (Negative); Babesia microti Negative (Negative); Ehrlichia chaffeensis Negative (Negative); Ehrlichia ewingii/canis Negative (Negative); Ehrlichia muris eauclairensis Negative (Negative)
== END 2023-10-05 09:07 | disposition home or self-care (01) ==
LOC: LBO 09:07
PROVIDERS: PCP Nurse Practitioner Family; Visit Provider Nurse Practitioner Family
DX: R53.83 Other fatigue (principal)
CPT/HCPCS: 36415; 87798; 86618

== ENCOUNTER 2023-10-15 15:33 | Outpatient (REF) | payer BC, SELFPAY ==
[2023-10-15 15:17] LABS: HGB 14.2 g/dL (11.2-15.7); MCH 28.8 pg (27.0-33.0); MCHC 32.3 % (32.0-36.0); MCV 89 fL (80-95); MPV 9.7 fL (8.0-11.0); Platelet Count 303 10^3/uL (130-400); RBC 4.93 10^6/uL (3.93-5.22); RDW 12.4 % (11.7-14.6); RDW-SD 40.5 fL
[2023-10-15 15:25] LABS: Iron 108 ug/dL (50-170); Total Iron Binding Capacity 360 ug/dL (250-450); Transferrin Sat 30 % (15-50)
[2023-10-15 15:37] LABS: ALT 57 U/L (14-59); AST 29 U/L (15-37); Albumin 3.9 g/dL (3.4-5.0); Alkaline Phosphatase 125 U/L (46-116); Anion Gap 6.2 mmol/L (3-11); BUN 13 mg/dL (7-18); Bilirubin, Total 0.59 mg/dL (0.2-1.0); CO2 30.8 mmol/L (21.0-32.0); CREATININE 0.8 mg/dL (0.55-1.02); Chloride 101 mmol/L (98-107); Estimated GFR 94.28 (mL/min/1.73m2); Ferritin 146 ng/mL (8-252); Glucose 98 mg/dL (74-106); Magnesium 1.9 mg/dL (1.8-2.4); Potassium 4.3 mmol/L (3.5-5.1); Sodium 138 mmol/L (136-145); TSH (W/Ref FT4) 0.72 uIU/mL (0.36-3.74); Total Protein 7.4 g/dL (6.4-8.2)
--- OUTSIDE RECORDS SUMMARY | 2023-10-15 15:38 | XMS_ITS | Encounter Summary ---
Author Organization [facility] Address [address] [place] [address] Care Team Providers Care Shot Blast Equipment Operator Name Role Phone None, Provider Primary Care Provider Unavailabl e Encounter Details Date Type Department Care Team (Late st Contact Info) Description 10/05/2023 Lab Requisition [facility] Pathology & Laboratory Medicine - [facility] [address], [place] [id number] Outr Resulting Lab, Provider Social History Tobacco Use Types Packs/Day Years Used Date Smoking Tobacco: Never Assessed Interpersonal Safety Answer Date Record ed Physically Hurt Never 10/15/2019 Verbally Threaten Not on file 10/15/2019 Sex and Gender Information Value Date Recorded Sex Assigned at Not on file Gender Identity Not on file Sexual Orientation Not on file documented as of this encounter Plan of Treatment Not on file documented as of this encounter Procedures Procedure Name Priority Date/Time Associated Diagnosis Comments LYME AB Routine 10/05/2023 8:19 EDT documented in this encounter Results * LYME AB (10/05/2023 8:19 EDT) Lyme Ab Negative Negative 10/06/2023 11:25 EDT [facility] Blood VENOUS BLOOD / Unknown 10/05/2023 8:19 EDT 10/05/2023 18:01 EDT Provider Outr Resulting Lab IMMUNOLOGY A ND SEROLOGY ORDERABLES [facility] [address] [place] [address] documented in this encounter Visit Diagnoses Not on filedocumented in this encounter Care Teams Shot Blast Equipment Operator Relationship Specialty Start Date End Date None, Provider PCP - General 01/31/13 documented as of this encounter
--- OUTSIDE RECORDS SUMMARY | 2023-10-15 15:38 | XMS_ITS | Encounter Summary ---
Author Organization [facility] Address [address] [place] [address] Care Team Providers Care Real Estate Development Manager Name Role Phone Unavailable Primary Care Provider Unavailabl e Encounter Details Date Type Department Care Team (Late st Contact Info) Description 10/05/2006 Results Only [facility] - Maple conversion [address] [place] [address] Mabel Mathis, [facility] [address] [place] [address] Social History Tobacco Use Types Packs/Day Years Used Date Smoking Tobacco: Never Assessed Sex and Gender Information Value Date Recorded Sex Assigned at Not on file Gender Identity Not on file Sexual Orientation Not on file documented as of this encounter Plan of Treatment Not on file documented as of this encounter Procedures Procedure Name Priority Date/Time Associated Diagnosis Comments CYTOPATHOLOGY Routine 10/05/2006 0:00 EDT documented in this encounter Results * CYTOPATHOLOGY (10/05/2006 0:00 EDT) Pathology Report: CYTOPATHOLOGY REPORT Reports generated via electronic interface contain original data; however they are lacking the format of the original report. Caution should be taken when reading/interpreti ng unformatted reports. Name: ? AURELIA KING ? Accession #: ? [id number] : ? 1980 (Age: 26) ??F ?Collect Date: ? 10/05/2006 Location: ? [facility] ? Receive Date: ? 10/06/2006 Provider: ?MABEL MATHIS REAL ESTATE DEVELOPER Copy to: ? Specimen/Source: ?ThinPrep Pap Test, Cervix/Endocervix, processed on [employer] ThinPrep Imaging System, with manual evaluation Last Menstrual Period: ? 10/03/06 Other: ? HPVA - HPV testing requested if ASC-US on the current ThinPrep Pap test. ? SPECIMEN ADEQUACY ? Satisfactory for Evaluation - transformation zone component present - scant squamous epithelial component GENERAL CATEGORIZATION ? Negative for Intraepithelial Lesion or Malignancy ? Document reviewed and electronically signed by: ? Kristyn Dye, ESAU(ASCP) ? Report Date: ??10/12/2006 10:57 End of Report VJ HANNAH 10/05/2006 10/06/2006 Mabel Mathis REAL ESTATE DEVELOPER PATHOLOGY ORDERABLES Performing Organization Address City/State/[facility] Co de Phone Number VJ HANNAH [address] [place] [address] documented in this encounter Visit Diagnoses Not on filedocumented in this encounter
--- OUTSIDE RECORDS SUMMARY | 2023-10-15 15:38 | XMS_ITS | Encounter Summary ---
Author Organization [facility] Address [address] [place] [address] Care Team Providers Care Foreign Diplomat Name Role Phone None, Provider Primary Care Provider Unavailabl e Encounter Details Date Type Department Care Team (Late st Contact Info) Description 08/13/2022 Lab Requisition [facility] Pathology & Laboratory Medicine - [facility] [address] [place] [address] Ella Preciado [address] [place] [address] [place] [phone] Encounter for other general examination Social History Tobacco Use Types Packs/Day Years [...] Procedure Name Priority Date/Time Associated Diagnosis Comments SURGICAL PATHOLOGY Today 08/13/2022 10 :44 EDT Encounter for other general examination documented in this encounter Results * SURGICAL PATHOLOGY (08/13/2022 10:44 EDT) Note to Patient The following pathology results have been interpreted by your pathologist and may be available to you before your health provider has had the opportunity to review them. Please allow time for your provider to receive these results and explore management options, if applicable. 08/18/2022 10:13 EDT [facility] Final Diagnosis A. FALLOPIAN TUBE, RIGHT, PARTIAL SALPINGECTOMY: - Fimbriated fallopian tube with no specific pathologic features. B. FALLOPIAN TUBE, LEFT, PARTIAL SALPINGECTOMY: - Fimbriated fallopian tube with no specific pathologic features. 08/18/2022 10:13 [facility] Attestation By the signature below, the attending physician certifies that they have 1) personally conducted a gross and/or microscopic examination of the described specimen(s), and/or personally interpreted the results of laboratory testing of the described specimen(s), and 2) personally rendered or confirmed the above diagnosis. 08/18/2022 10:13 [facility] at 1013 Clinical History Undesired fertility 08/18/2022 10:13 [facility] Gross Description A. Received in formalin labelled with proper patient identification (initials B, T) and R fallopian tube is a 5.6 cm in length by 0.6 cm in diameter fimbriated fallopian tube. The serosa is smooth and pink-rowe with a few clear fluid-filled paratubal cysts (ranging up to 0.3 cm in greatest dimension). No excrescences are identified. Sectioning reveals a patent, unremarkable lumen. Business Analytics Manager sections, to include the bisected fimbria, are submitted in A1-A2. B. Received in formalin labelled with proper patient identification (initials B, T) and L fallopian tube is a 4.3 cm in length by 0.5 cm in diameter fimbriated fallopian tube. The serosa is smooth and dark purple. Sectioning reveals a patent, unremarkable lumen. Business Analytics Manager sections, to include the bisected fimbria, are submitted in B1-B2. WILLIS SCHAEFFER(ASCP) 08/14/2022 7:11 08/18/2022 10:13 [facility] Performing Lab [facility] 08/18/2022 10:13 [facility] Scanned Images 08/18/2022 10:13 [facility] Tissue ENTIRE FALLOPIAN TUBE / Unknown 08/13/2022 10:44 EDT 08/13/2022 21:57 EDT Tissue specimen (specimen) FALLOPIAN TUBE STRUCTURE / Unknown 08/13/2022 10:44 EDT 08/13/2022 21:57 EDT Ella Preciado PATHOLOGY ORDERABLES [facility] [address] [place] [address] documented in this encounter Visit Diagnoses Diagnosis Encounter for other general examination documented in this encounter Care Teams Foreign Diplomat Relationship Specialty Start Date End Date None, Provider PCP - General 01/31/13 documented as of this encounter
--- OUTSIDE RECORDS SUMMARY | 2023-10-15 15:38 | XMS_ITS | Encounter Summary ---
Author Organization [facility] Address [address] [place] [address] Care Team Providers Care Boat Dispatcher Name Role Phone Unavailable Primary Care Provider Unavailabl e Encounter Details Date Type Department Care Team (Late st Contact Info) Description 11/01/2003 Results Only [facility] - Maple conversion [address] [place] [address] Nita Castano [address] [place], [place] [id number] Social History Tobacco Use Types Packs/Day Years Used Date Smoking Tobacco: Never Assessed Sex and Gender Information Value Date Recorded Sex Assigned at Not on file Gender Identity Not on file Sexual Orientation Not on file documented as of this encounter Plan of Treatment Not on file documented as of this encounter Procedures Procedure Name Priority Date/Time Associated Diagnosis Comments CYTOPATHOLOGY Routine 11/01/2003 0:00 EDT documented in this encounter Results * CYTOPATHOLOGY (11/01/2003 0:00 EDT) Pathology Report: CYTOPATHOLOGY REPORT Reports generated via electronic interface contain original data; however they are lacking the format of the original report. Caution should be taken when reading/interpreti ng unformatted reports. Name: ? AURELIA KING ? Accession #: ? [id number] : ? 1980 (Age: 23) ??F ?Collect Date: ? 11/01/2003 Location: ? [facility] ? Receive Date: ? 11/02/2003 Provider: ?NITA STEVENSM Copy to: ? Specimen/Source: ?ThinPrep Pap Test, Cervix/Endocervix Last Menstrual Period: ? 08/16/03 Menstrual/Pregnanc y Status: ? Other: ? HPVA - HPV testing requested if ASC-US on the current ThinPrep Pap test. ? SPECIMEN ADEQUACY ? Satisfactory for Evaluation - transformation zone component present - scant squamous epithelial component secondary to excessive mucus GENERAL CATEGORIZATION ? Negative for Intraepithelial Lesion or Malignancy ? Document reviewed and electronically signed by: ? Guillermo Greenberg, ESAU(ASCP) ? Report Date: ??11/06/2003 11:53 End of Report VJ HANNAH 11/01/2003 11/02/2003 Nita Castnao CNM PATHOLOGY ORDERABLES Performing Organization Address City/State/[facility] Co de Phone Number VJ HANNAH [address] [place] [address] documented in this encounter Visit Diagnoses Not on filedocumented in this encounter
--- OUTSIDE RECORDS SUMMARY | 2023-10-15 15:38 | XMS_ITS | Encounter Summary ---
Author Organization [facility] Address [address] [place] [address] Care Team Providers Care Outside Sales Advertising Executive Name Role Phone None, Provider Primary Care Provider Unavailabl e Encounter Details Date Type Department Care Team (Latest Contact Info) Description 02/12/2015 16:25 EST - 02/12/2015 23:59 EST Hospital Encounter [address] [address] Unknown, Provider, Discharge Disposition: Home or Self Care Social History Tobacco Use Types Packs/Day Years Used Date Smoking Tobacco: Never Assessed Sex and Gender Information Value Date Recorded Sex Assigned at Not on file Gender Identity Not on file Sexual Orientation Not on file documented as of this encounter Discharge Disposition Disposition Code Departure Means Destination Home or Self Usp documented in this encounter Plan of Treatment Not on file documented as of this encounter Visit Diagnoses Not on filedocumented in this encounter Care Teams Outside Sales Advertising Executive Relationship Specialty Start Date End Date None, Provider PCP - General 01/31/13 documented as of this encounter
--- OUTSIDE RECORDS SUMMARY | 2023-10-15 15:38 | XMS_ITS | Encounter Summary ---
Author Organization [facility] Address [address] [place] [address] Care Team Providers Care Nursing Home Director Name Role Phone None, Provider Primary Care Provider Unavailabl e Encounter Details Date Type Department Care Team (Late st Contact Info) Description 04/06/2022 Lab Requisition [facility] Pathology & Laboratory Medicine - [facility] [place] [address] [place] [address] [place], [place] [id number] Encounter for other general examination Social History [...] Procedure Name Priority Date/Time Associated Diagnosis Comments PAP TEST Today 04/03/2022 3:00 EST Encounter for other general examination HPV GENOTYPES 16 AND 18/45 Today 04/03/2022 3:00 EST Encounter for other general examination HPV DNA DETECTION WITH GENOTYPING, PCR Today 04/03/2022 3:00 EST Encounter for other general examination documented in this encounter Results * HPV GENOTYPES 16 AND 18/45 (04/03/2022 3:00 EST) HPV High Risk type 16, PCR Negative Negative 04/14/2022 15:04 [facility] HPV18/45 RNA (HPV18/45) Negative Negative 04/14/2022 15:04 [facility] Papanicolaou smear specimen (specimen) CERVIX UTERI STRUCTURE / Unknown 04/03/2022 3:00 EST 04/10/2022 14:28 EST LuzJewel Morse [facility] MICROBIOLOGY - GENER AL ORDERABLES Performing Organization Address [facility] de Phone Number [facility] [address] [place] [address] * (ABNORMAL) HUMAN PAPILLOMAVIRUS (HPV) DETECTION-HIGH RISK TYPES (04/03/2022 3:00 EST) HPV other High Risk types, PCR Positive( A) Negative 04/14/2022 15:17 [facility] Comment:E6 OR E7 mRNA from o ne or more types of HPV types 16,18,31,33,35,39,45,51,52,56,58,59,66, and 68 is detected by knitting teacher mediated amplification. High and intermediate risk HPV types are associated with most squamous intraepithelial lesions and cervical cancers. Papanicolaou smear specimen (specimen) CERVIX UTERI STRUCTURE / Unknown 04/03/2022 3:00 EST 04/10/2022 14:28 EST Luz [facility] MICROBIOLOGY - GENER AL ORDERABLES Performing Organization Address [facility] de Phone Number [facility] [address] [place] [address] * PAP TEST (04/03/2022 3:00 EST) Specimens A. Cervix and/or Endocervix , ThinPrep Imaging System with Manual Evaluation 04/14/2022 15:17 [facility] Specimen Adequacy Satisfactory for Evaluation - transformation zone component present 04/14/2022 15:17 [facility] General Categorization Epithelial Cell Abnormality 04/14/2022 15:17 [facility] Descriptive Diagnosis Squamous Cell Abnormality - Low grade squamous intraepithelial lesion (LSIL). 04/14/2022 15:17 [facility] Educational Comments [facility] recommends following the ASCCP's management guidelines which may be found at www.asccp.org 04/14/2022 15:17 [facility] Attestation By the signature below, the attending physician certifies that they have personally conducted a gross and/or microscopic examination of the described specimens and rendered or confirmed the above diagnosis. 04/14/2022 15:17 [facility] at 1517 Clinical History SEE BELOW 04/14/19 15:17 [facility] HPV The result for the Human Papillomavirus (HPV) Detection-High Risk Types is Positive . E6 OR E7 mRNA from one or more types of HPV types 16,18,31,33,35,39 ,45,51,52,56,58,5 9,66, and 68 is detected by knitting teacher mediated amplification. High and intermediate risk HPV types are associated with most squamous intraepithelial lesions and cervical cancers. Testing was performed on specimen [id number] and was resulted on 04/13/2022 1519 EST by JOSE, LAB INSTRUMENT RESULTS IN 04/14/2022 15:17 [facility] Genotyping 16 & 18/45 The results for the HPV Genotypes 16 and 18/45 are Negative for the HPV16 RNA and Negative for the HPV18/45 RNA (HPV18/45). Testing was performed on specimen [id number] and was resulted on 04/14/2022 1504 EST by JOSE, LAB INSTRUMENT RESULTS IN 04/14/2022 15:17 [facility] Performing Lab [facility] 04/14/2022 15:17 [facility] Scanned Images 04/14/2022 15:17 [facility] Papanicolaou smear specimen (specimen) CERVIX UTERI STRUCTURE / Unknown 04/03/2022 3:00 EST 04/06/2022 10:20 EST Luz Morse [facility] PATHOLOGY ORDERABLES [facility] [address] [place] [address] documented in this encounter Visit Diagnoses Diagnosis Encounter for other general examination documented in this encounter Care Teams Nursing Home Director Relationship Specialty Start Date End Date None, Provider PCP - General 01/31/13 documented as of this encounter
--- OUTSIDE RECORDS SUMMARY | 2023-10-15 15:38 | XMS_ITS | Clinical Summary ---
Author Organization [facility] Address [address] [place] [address] Care Team Providers Care Filtering Machine Tender Helper Name Role Phone None, Provider Primary Care Provider Unavailabl e Encounters Date Type Department Care Team Description 10/05/2023 Lab Requisition [facility] Pathology & Laboratory Medicine - [address] [address] Outr Resulting Lab, Provider from Last 3 Months Social History Tobacco Use Types Packs/Day Years Used Date Smoking Tobacco: Never Assessed Interpersonal Safety Answer Date Record ed Physically Hurt Never 10/15/2019 Verbally Threaten Not on file 10/15/2019 Sex and Gender Information Value Date Recorded Sex Assigned at Not on file Gender Identity Not on file Sexual Orientation Not on file Plan of Treatment Health Maintenance Due Date Last Done Comments Hepatitis C Screen 1980 Hepatitis B Vaccine (1 of 3 - 19+ 3-dose series) 02/13 COVID-19 Vaccine ( season) 2022 Procedures Procedure Name Priority Date/Time Associated Diagnosis Comments LYME AB Routine 10/05/2023 8:19 EDT from Last 3 Months Results * LYME AB (10/05/2023 8:19 EDT) Lyme Ab Negative Negative 10/06/2023 11:25 EDT [facility] Blood VENOUS BLOOD / Unknown 10/05/2023 8:19 EDT 10/05/2023 18:01 EDT Provider Outr Resulting Lab IMMUNOLOGY A ND SEROLOGY ORDERABLES [facility] [address] [place] [address] from Last 3 Months Care Teams Filtering Machine Tender Helper Relationship Specialty Start Date End Date None, Provider PCP - General 01/31/13
--- OUTSIDE RECORDS SUMMARY | 2023-10-15 15:38 | XMS_ITS | Encounter Summary ---
Author Organization [facility] Address [address] [place] [address] Care Team Providers Care Security Assessor Name Role Phone None, Provider Primary Care Provider Unavailabl e Encounter Details Date Type Department Care Team (Latest Contact Info) Description 11/12/2017 17:04 EDT - 11/12/2017 23:59 EDT Hospital Encounter [address] [address] Unknown, Provider, Discharge Disposition: Home or Self Care Social History Tobacco Use Types Packs/Day Years Used Date Smoking Tobacco: Never Assessed Sex and Gender Information Value Date Recorded Sex Assigned at Not on file Gender Identity Not on file Sexual Orientation Not on file documented as of this encounter Discharge Disposition Disposition Code Departure Means Destination Home or Self Group Home documented in this encounter Plan of Treatment Not on file documented as of this encounter Visit Diagnoses Not on filedocumented in this encounter Care Teams Security Assessor Relationship Specialty Start Date End Date None, Provider PCP - General 01/31/13 documented as of this encounter
--- OUTSIDE RECORDS SUMMARY | 2023-10-15 15:38 | XMS_ITS | Encounter Summary ---
Author Organization [facility] Address [address] [place] [address] Care Team Providers Care Wrapper Stemmer Hand Name Role Phone None, Provider Primary Care Provider Unavailabl e Encounter Details Date Type Department Care Team (Late st Contact Info) Description 08/26/2016 Results Only [facility] [phone] Tatianna Abbasi MD [address] [place] [address] [place] [address] Social History Tobacco Use Types Packs/Day Years Used Date Smoking Tobacco: Never Assessed Sex and Gender Information Value Date Recorded Sex Assigned at Not on file Gender Identity Not on file Sexual Orientation Not on file documented as of this encounter Plan of Treatment Not on file documented as of this encounter Procedures Procedure Name Priority Date/Time Associated Diagnosis Comments PAP TEST- RESULT ONLY Routine 08/26/2016 0:00 EDT documented in this encounter Results * PAP TEST- RESULT ONLY (08/26/2016 0:00 EDT) Pathology Report: CYTOPATHOLOGY REPORT Reports generated via electronic interface contain original data; however they are lacking the format of the original report. Caution should be taken when reading/interpreti ng unformatted reports. Name: ? AURELIA KING ? Accession #: ? [id number] ? : ? 1980 (Age: 36) ??F ?Collect Date: ? 08/26/2016 ? Location: ? [facility] ? Receive Date: ? 08/28/2016 ? Provider: TATIANNA ABBASI MD Copy to: HYACINTH MARTINES MD ? Final Report SPECIMEN ADEQUACY ? Satisfactory for Evaluation - transformation zone component present GENERAL CATEGORIZATION ? Epithelial Cell Abnormality INTERPRETATION ? Squamous Cell Abnormality - Atypical squamous cells, undetermined significance (ASC-US). EDUCATIONAL NOTES/RECOMMENDATI ONS ? [facility] recommends following ASCCP's 2012 Updated Consensus Guidelines for the Management of Abnormal Cervical Cancer Screening Tests and Cancer Precursors (JLGTD, 2013; 17(5):S1-S27). ??Consensus guidelines are available online at www.asccp.org. Last Menstrual Period: 07/26/2016 Previous Gynecologic Pathology: ASC-US: 02/12/2015 HPV: + 02/12/2015 JANET II: 03/01/2015 Treatment History: Biopsy: CX 03/01/2015 Specimen/Source: ??Pap Test, Cervix, ThinPrep Imaging System with manual evaluation Document reviewed and electronically signed by: ? MICHAEL YUNG MD ? Report ??Date: 09/10/2016 17:07 HPV with Pap Test ? Date Ordered: ? 09/10/2016 ? Status: ?? Signed Out ?Date Complete: ? 09/11/2016 ? By: ??System Interface ? Date Reported: ? 09/11/2016 ? Interpretation RESULT: Positive for high or intermediate risk HPV. E6 OR E7 mRNA from one or more types of HPV types 16,18,31, 33,35,39,45,51,52, 56,58,59,66, and 68 is detected by requisition approver mediated amplification. High and intermediate risk HPV types are associated with most squamous intraepithelial lesions and cervical cancers. Comments Document reviewed and electronically signed by: ? System Interface ? Report date: 09/11/2016 By the signature above, the attending physician certifies that he/she has personally conducted a gross and/or microscopic examination of the described specimens and rendered or confirmed the above diagnosis. End of Report [facility] 08/26/2016 08/28/2016 Tatianna Abbasi MD PATHOLOGY ORDERABLES [facility] [address] [place] [address] documented in this encounter Visit Diagnoses Not on filedocumented in this encounter Care Teams Wrapper Stemmer Hand Relationship Specialty Start Date End Date None, Provider PCP - General 01/31/13 documented as of this encounter
--- OUTSIDE RECORDS SUMMARY | 2023-10-15 15:38 | XMS_ITS | Encounter Summary ---
Author Organization [facility] Address [address] [place] [address] Care Team Providers Care Used Car Sales Supervisor Name Role Phone None, Provider Primary Care Provider Unavailabl e Encounter Details Date Type Department Care Team (Late st Contact Info) Description 11/12/2017 Results Only [facility]- [facility] [phone] Kayce Lopez, [facility]- [address] [place] [address] Social History Tobacco Use Types Packs/Day Years [...] Diagnosis Comments PAP TEST- RESULT ONLY Routine 11/12/2017 0:00 EDT documented in this encounter Results * PAP TEST- RESULT ONLY (11/12/2017 0:00 EDT) Pathology Report: CYTOPATHOLOGY REPORT Reports generated via electronic interface contain original data; however they are lacking the format of the original report. Caution should be taken when reading/interpreti ng unformatted reports. Name: ? AURELIA KING ? Accession #: ? [id number] ? : ? 1980 (Age: 37) ??F ?Collect Date: ? 11/12/2017 ? Location: ? [facility] ? Receive Date: ? 11/17/2017 ? Provider: KAYCE ARAUZ FIGURE CLERK-BC Copy to: ? Final Report SPECIMEN ADEQUACY ? Satisfactory for Evaluation - transformation zone component present GENERAL CATEGORIZATION ? Epithelial Cell Abnormality INTERPRETATION ? Squamous Cell Abnormality - Atypical squamous cells, undetermined significance (ASC-US). EDUCATIONAL NOTES/RECOMMENDATI ONS ? [facility] recommends following ASCCP's 2012 Updated Consensus Guidelines for the Management of Abnormal Cervical Cancer Screening Tests and Cancer Precursors (JLGTD, 2013; 17(5):S1-S27). ??Consensus guidelines are available online at www.asccp.org. Last Menstrual Period: 6 months Hormonal/Contracep tive status: Intrauterine device Previous Gynecologic Pathology: Yes: ??hx abnls Specimen/Source: ??Pap Test, Cervix, ThinPrep Imaging System with manual evaluation Document reviewed and electronically signed by: ? MICHAEL YUNG MD ? Report ??Date: 11/26/2017 14:44 HPV with Pap Test ? Date Ordered: ? 11/26/2017 ? Status: ?? Signed Out ?Date Complete: ? 11/29/2017 ? By: ??System Interface ? Date Reported: ? 11/29/2017 ? Interpretation RESULT: POSITIVE FOR HIGH OR INTERMEDIATE RISK HPV. E6 OR E7 mRNA from one or more types of HPV types 16,18,31, 33,35,39,45,51,52, 56,58,59,66, and 68 is detected by painting and coating worker mediated amplification. High and intermediate risk HPV types are associated with most squamous intraepithelial lesions and cervical cancers. Comments Document reviewed and electronically signed by: ? System Interface ? Report date: 11/29/2017 By the signature above, the attending physician certifies that he/she has personally conducted a gross and/or microscopic examination of the described specimens and rendered or confirmed the above diagnosis. End of Report [facility] 11/12/2017 11/17/2017 Kayce Lopez [facility] PATHOLOGY ORDERA BLES [facility] [address] [place] [address] documented in this encounter Visit Diagnoses Not on filedocumented in this encounter Care Teams Used Car Sales Supervisor Relationship Specialty Start Date End Date None, Provider PCP - General 01/31/13 documented as of this encounter
--- OUTSIDE RECORDS SUMMARY | 2023-10-15 15:38 | XMS_ITS | Encounter Summary ---
Author Organization [facility] Address [address] [place] [address] Care Team Providers Care Apartment Maintenance Supervisor Name Role Phone None, Provider Primary Care Provider Unavailabl e Encounter Details Date Type Department Care Team (Late st Contact Info) Description 03/01/2015 Results Only [facility]- [facility] [phone] Tatianna Abbasi MD [address] [place] [address] [place] [address] Social History Tobacco Use Types Packs/Day Years Used Date Smoking Tobacco: Never Assessed Sex and Gender Information Value Date Recorded Sex Assigned at Not on file Gender Identity Not on file Sexual Orientation Not on file documented as of this encounter Plan of Treatment Not on file documented as of this encounter Procedures Procedure Name Priority Date/Time Associated Diagnosis Comments SURGICAL PATHOLOGY Routine 03/01/2015 7:22 EST documented in this encounter Results * SURGICAL PATHOLOGY (03/01/2015 7:22 EST) Pathology Report: SURGICAL PATHOLOGY REPORT Reports generated via electronic interface contain original data; however they are lacking the format of the original report. Caution should be taken when reading/interpreting unformatted reports. Name: ? AURELIA KING ? Accession #: ? [id number] ? : ? 1980 (Age: 35) ??F ? Collect Date: ? 03/01/2015 ? Location: ? [facility] ? Receive Date: ? 03/02/2015 ? Provider: TATIANNA ABBASI MD Copy to: ROMEL JIMENEZ TRAFFIC LINE PAINTER ? Final Pathologic Diagnosis: A. ??ENDOCERVIX, 6 O'CLOCK, BIOPSY: - High-grade squamous intraepithelial lesion (JANET II). ??See comment. B. ??ENDOCERVIX, 12 O'CLOCK, BIOPSY: - Squamous metaplasia with mild reactive features. Comment: To confirm the morphologic impression of high grade squamous intraepithelial lesion (HSIL), a limited panel of immunohistochemical stains to include P16 (E6H4TM, Currie) and Ki67 (MIB-1) (K2, Leica) are performed on specimen (A). The P16 stain shows strong nuclear and cytoplasmic block-like staining and the MIB-1 stain shows increased nuclear staining in the lower two-thirds of the epithelium. ??The staining pattern does confirm the morphologic impression of HSIL. ??(Dr. Hernandez)/[facility] NOTE: ??One or more of the reagents used in immunoperoxidase testing in this case may not have been cleared or approved by the U.S. Food and Drug Administration (FDA). ??The FDA has determined that such clearance or approval is not necessary. ??These tests are used for clinical purposes. ??They should not be regarded as investigational or for research. ??These reagents' performance characteristics have been determined by [facility]. ??This laboratory is certified under the Clinical Laboratory Improvement Amendments of 1988 (CLIA-88) as qualified to perform high complexity clinical laboratory testing. ?? Document reviewed and electronically signed by: EVELIA HERNANDEZ MD Report ??Date: 03/06/2015 12:37 By the signature above, the attending physician certifies that he/she has personally conducted a gross and/or microscopic examination of the described specimens and rendered or confirmed the above diagnosis. Specimen(s) Received: A. ??Endocervical bx 6 o'clock B. ??Endocervical bx 12 o'clock Clinical History: ASCUS, (+) HPV Gross Description: A. ?Received in formalin labelled with proper patient identification (initials B, T) and endocervical 6 o'clock is a single rowe-white tissue fragment (0.3 x 0.2 x 0.2 cm). Submitted intact in A1. B. ?Received in formalin labelled with proper patient identification (initials B, T) and endocervical 12 o'clock is a single rowe-white tissue fragment (0.4 x 0.3 x 0.2 cm). Submitted intact in B1. Lorraine Garcia 03/04/2015 8:47 AM End of Report [facility] 03/01/2015 7:22 EST 03/02/2015 7:22 EST Tatianna Abbasi MD PATHOLOGY ORDERABLES Performing Organization Address City/State/[facility] Co de Phone Number [facility] [address] [place] [address] documented in this encounter Visit Diagnoses Not on filedocumented in this encounter Care Teams Apartment Maintenance Supervisor Relationship Specialty Start Date End Date None, Provider PCP - General 01/31/13 documented as of this encounter
--- OUTSIDE RECORDS SUMMARY | 2023-10-15 15:38 | XMS_ITS | Encounter Summary ---
Author Organization [facility] Address [address] [place] [address] Care Team Providers Care Appointment Setter Name Role Phone None, Provider Primary Care Provider Unavailabl e Encounter Details Date Type Department Care Team (Late st Contact Info) Description 09/19/2020 Lab Requisition [facility] Pathology & Laboratory Medicine - [facility] [address] [place] [address] Outr Resulting Lab, Provider Social History Tobacco [...] Date/Time Associated Diagnosis Comments LYME AB Routine 09/19/2020 11:39 EDT ZZLY[facility] IMMUNOBLOT CONFIRMATION Today 09/19/2020 11:39 EDT documented in this encounter Results * LYME IMMUNOBLOT CONFIRMATION (09/19/2020 11:39 EDT) Lyme IGG ImmunoBlot Negative Negative 09/23/2020 15:36 EDT [facility] Lyme IGG Bands No Bands Detected 09/23/2020 15:36 EDT [facility] Lyme IgM ImmunoBlot Negative Negative 09/23/2020 15:36 EDT [facility] Lyme IGM Band(s) p23 09/24/19 15:36 EDT [facility] Lyme Immunoblot Interpretation See Comment 09/23/2020 15:36 EDT [facility] Blood VENOUS BLOOD / Unknown 09/19/2020 11:39 EDT 09/19/2020 15:48 EDT Narrative [facility] - 09/23/2020 15:36 EDT Specific serologic response to B. burgdorferi infection is not detected. ??This may indicate lack of infection, lack of seroconversion or low/undetectable antibody levels to B. burgdorferi. ??If clinically indicated, a new serum specimen should be submitted in 7-14 days. CDC criteria require greater than or equal to the presence of 5 bands for IgG or greater than or equal to 2 bands for IgM for the Immunoblot to be considered positive. Bands may be detected in patients without Lyme Disease. Patterns not meeting CDC criteria should be interpreted with caution. ??Per CDC guidelines, Immunoblot testing should only be performed on specimens that are positive or equivocal by Immunoassay. Performing only the Immunoblot increases the possibility of false positive results. Results should be considered positive only when both the Immunoassay and the Immunoblot are positive. Provider Outr Resulting Lab IMMUNOLOGY A ND SEROLOGY ORDERABLES Performing Organization Address City/[facility] Co de Phone Number [facility] [address] [place] [address] * (ABNORMAL) LYME AB (09/19/2020 11:39 EDT) Lyme Ab Positive( A) Negative 09/20/2020 15:03 EDT [facility] Comment: Lyme Immunoblot confirmation added by reflex. New 3rd generation assay in use 08/23/2019 The [employer] Lyme Liaison Lyme Total Antibody Plus assay contains antigens from Borrelia burgdorferi, Borrelia garinii, and Borelia afzelli. ??Results from the second-step western blots that detect only B. burgdorferi specific antigens should be interpreted with caution. Blood VENOUS BLOOD / Unknown 09/19/2020 11:39 EDT 09/19/2020 15:48 EDT Provider Outr Resulting Lab IMMUNOLOGY A ND SEROLOGY ORDERABLES Performing Organization Address City/[facility]/ZIP Co de Phone Number [facility] [address] [place] [phone] documented in this encounter Visit Diagnoses Not on filedocumented in this encounter Care Teams Appointment Setter Relationship Specialty Start Date End Date None, Provider PCP - General 01/31/13 documented as of this encounter
--- OUTSIDE RECORDS SUMMARY | 2023-10-15 15:38 | XMS_ITS | Encounter Summary ---
Author Organization [facility] Address [address] [place] [address] Care Team Providers Care Construction Field Engineer Name Role Phone None, Provider Primary Care Provider Unavailabl e Encounter Details Date Type Department Care Team (Latest Contact Info) Description 03/01/2015 10:31 EST - 03/01/2015 23:59 EST Hospital Encounter [address] [address] Unknown, Provider, Discharge Disposition: Home or Self Care Social History Tobacco Use Types Packs/Day Years Used Date Smoking Tobacco: Never Assessed Sex and Gender Information Value Date Recorded Sex Assigned at Not on file Gender Identity Not on file Sexual Orientation Not on file documented as of this encounter Discharge Disposition Disposition Code Departure Means Destination Home or Self Skilled Nursing documented in this encounter Plan of Treatment Not on file documented as of this encounter Visit Diagnoses Not on filedocumented in this encounter Care Teams Construction Field Engineer Relationship Specialty Start Date End Date None, Provider PCP - General 01/31/13 documented as of this encounter
--- OUTSIDE RECORDS SUMMARY | 2023-10-15 15:38 | XMS_ITS | Encounter Summary ---
Author Organization [facility] Address [address] [place] [address] Care Team Providers Care Rack Pusher Name Role Phone None, Provider Primary Care Provider Unavailabl e Encounter Details Date Type Department Care Team (Late st Contact Info) Description 02/12/2015 Results Only [facility] [phone] Mabel Mathis, [address] [place] [address] Social History Tobacco Use Types [...] Diagnosis Comments PAP TEST- RESULT ONLY Routine 02/12/2015 0:00 EST documented in this encounter Results * PAP TEST- RESULT ONLY (02/12/2015 0:00 EST) Pathology Report: CYTOPATHOLOGY REPORT Reports generated via electronic interface contain original data; however they are lacking the format of the original report. Caution should be taken when reading/interpreti ng unformatted reports. Name: ? AURELIA KING ? Accession #: ? [id number] ? : ? 1980 (Age: 35) ??F ?Collect Date: ? 02/12/2015 ? Location: ? [facility] ? Receive Date: ? 2015 ? Provider: MABEL MATHIS GRAIN PROCESSOR Copy to: ROMEL JIMENEZ SHEARER HELPER ? Final Report SPECIMEN ADEQUACY ? Satisfactory for Evaluation - transformation zone component present GENERAL CATEGORIZATION ? Epithelial Cell Abnormality INTERPRETATION ? Squamous Cell Abnormality - Atypical squamous cells, undetermined significance (ASC-US). EDUCATIONAL NOTES/RECOMMENDATI ONS ? [facility] recommends following ASCCP's 2012 Updated Consensus Guidelines for the Management of Abnormal Cervical Cancer Screening Tests and Cancer Precursors (JLGTD, 2013; 17(5):S1-S27). ??Consensus guidelines are available online at www.asccp.org. Hormonal/Contracep tive status: Intrauterine device: Mirena Specimen/Source: ??Pap Test, Cervix/Endocervix, ThinPrep Imaging System with manual evaluation Document reviewed and electronically signed by: ? WENDY SOSA MD ? Report ??Date: 02/18/2015 17:39 HPV with Pap Test ? Date Ordered: ? 02/18/2015 ? Status: ?? Signed Out ?Date Complete: ? 02/20/2015 ? By: ??System Interface ? Date Reported: ? 02/20/2015 ? Interpretation RESULT: Positive for high or intermediate risk HPV. E6 OR E7 mRNA from one or more types of HPV types 16,18,31, 33,35,39,45,51,52, 56,58,59,66, and 68 is detected by yarn dry room worker mediated amplification. High and intermediate risk HPV types are associated with most squamous intraepithelial lesions and cervical cancers. Comments Document reviewed and electronically signed by: ? System Interface ? Report date: 02/20/2015 By the signature above, the attending physician certifies that he/she has personally conducted a gross and/or microscopic examination of the described specimens and rendered or confirmed the above diagnosis. End of Report [facility] 02/12/2015 2015 Mabel Mathis GRAIN PROCESSOR PATHOLOGY ORDERABLES Performing Organization Address City/State/[facility] Co de Phone Number [facility] [address] [place] [address] documented in this encounter Visit Diagnoses Not on filedocumented in this encounter Care Teams Rack Pusher Relationship Specialty Start Date End Date None, Provider PCP - General 01/31/13 documented as of this encounter
--- OUTSIDE RECORDS SUMMARY | 2023-10-15 15:38 | XMS_ITS | Encounter Summary ---
Author Organization [facility] Address [address] [place] [address] Care Team Providers Care Emulsion Operator Name Role Phone Unavailable Primary Care Provider Unavailabl e Encounter Details Date Type Department Care Team (Late st Contact Info) Description 12/29/2012 Results Only [facility] - [facility] [address] [place] [address] Mabel Mathis, [facility] [address] [place] [address] [place] [address] Social History Tobacco Use Types [...] Diagnosis Comments PAP TEST- RESULT ONLY Routine 12/29/2012 0:00 EDT documented in this encounter Results * PAP TEST- RESULT ONLY (12/29/2012 0:00 EDT) Pathology Report: CYTOPATHOLOGY REPORT Reports generated via electronic interface contain original data; however they are lacking the format of the original report. Caution should be taken when reading/interpreti ng unformatted reports. Name: ? AURELIA KING ? Accession #: ? [id number] : ? 1980 (Age: 32) ??F ?Collect Date: ? 12/29/2012 Location: ? [facility] ? Receive Date: ? 12/30/2012 Provider: ?MABEL MATHIS MEDICAID ELIGIBILITY SPECIALIST Copy to: ?ROMEL JIMENEZ ELECTION CLERK ? Specimen/Source: ?Pap Test, Cervix/Endocervix, ThinPrep Imaging System with manual evaluation Last Menstrual Period: ? 12/02/12 Hormonal/Contracep tive Status: ? Oral contraceptives Other: ? Additional clinical information: pap on 07/26/12 and 08/05/12 both unsatisfactory ? SPECIMEN ADEQUACY ? Satisfactory for Evaluation - transformation zone component present GENERAL CATEGORIZATION ? Negative for Intraepithelial Lesion or Malignancy ? Document reviewed and electronically signed by: ? ESAU Dial(ASCP) ? Report Date: ??01/04/2013 13:33 End of Report [facility] 12/29/2012 12/30/2012 Mabel Mathis MEDICAID ELIGIBILITY SPECIALIST PATHOLOGY ORDERABLES Performing Organization Address City/State/[facility] Co de Phone Number [facility] [address] [place] [address] documented in this encounter Visit Diagnoses Not on filedocumented in this encounter
--- OUTSIDE RECORDS SUMMARY | 2023-10-15 15:38 | XMS_ITS | Encounter Summary ---
Author Organization [facility] Address [address] [place] [address] Care Team Providers Care Provider Network Mgr Name Role Phone Unavailable Primary Care Provider Unavailabl e Encounter Details Date Type Department Care Team (Latest Contact Info) Description 01/24/2013 13:47 EST - 01/24/2013 23:59 EST Hospital Encounter [address] [address] Unknown, Provider, Discharge Disposition: Home or Self [...]
--- OUTSIDE RECORDS SUMMARY | 2023-10-15 15:38 | XMS_ITS | Encounter Summary ---
Author Organization [facility] Address [address] [place] [address] Care Team Providers Care Fire Truck Driver Name Role Phone None, Provider Primary Care Provider Unavailabl e Encounter Details Date Type Department Care Team (Late st Contact Info) Description 06/24/2023 Lab Requisition [facility] Pathology & Laboratory Medicine - [facility] [address] [place], [place] [id number] Outr Resulting Lab, Provider Social History Tobacco [...] Procedure Name Priority Date/Time Associated Diagnosis Comments RHEUMATOID FACTOR Routine 06/24/2023 8:3 4 EDT ANTI NUCLEAR AB (AUTUMN), IFA Routine 06/24/2023 8:34 EDT documented in this encounter Results * RHEUMATOID FACTOR (06/24/2023 8:34 EDT) Rheumatoid Factor <8.6 <12.0 IU/mL 06/24/2023 17:50 EDT [facility] Blood VENOUS BLOOD / Unknown 06/24/2023 8:34 EDT 06/24/2023 17:31 EDT Provider Outr Resulting Lab CHEMISTRY & BLOOD GAS ORDERABLES Performing Organization Address City/State/[facility] Co de Phone Number [facility] [address] [place], [place] [address] * ANTI NUCLEAR AB (AUTUMN), IFA (06/24/2023 8:34 EDT) AUTUMN Interpretation Negative Negative 2023 15:22 EDT [facility] Comment:No titer performed, AUTUMN Screen is negative. Blood VENOUS BLOOD / Unknown 06/24/2023 8:34 EDT 06/24/2023 17:31 EDT Narrative [facility] - 06/25/2023 15:22 EDT Results were obtained with the INOVA NOVA Lite HEp-2 AUTUMN Kit by indirect immunofluorescence. Provider Outr Resulting Lab IMMUNOLOGY A ND SEROLOGY ORDERABLES Performing Organization Address [facility] Co de Phone Number [facility] [address] [place], [place] [address] documented in this encounter Visit Diagnoses Not on filedocumented in this encounter Care Teams Fire Truck Driver Relationship Specialty Start Date End Date None, Provider PCP - General 01/31/13 documented as of this encounter
--- OUTSIDE RECORDS SUMMARY | 2023-10-15 15:38 | XMS_ITS | Referral Summary ---
Author Organization [facility] Address [address] [place] [address] Care Team Providers Care Florist Name Role Phone None, Provider Primary Care Provider Unavailabl e Encounters Date Type Department Care Team Description 10/05/2023 Lab Requisition [facility] Pathology & Laboratory Medicine - [facility] [address] [place] [address] Outr Resulting Lab, Provider from Last 3 Months Social History Tobacco Use Types Packs/Day Years Used Date Smoking Tobacco: Never Assessed Interpersonal Safety Answer Date Record ed Physically Hurt Never 10/15/2019 Verbally Threaten Not on file 10/15/2019 Sex and Gender Information Value Date Recorded Sex Assigned at Not on file Gender Identity Not on file Sexual Orientation Not on file Plan of Treatment Not on file Procedures Procedure Name Priority Date/Time Associated Diagnosis Comments LYME AB Routine 10/05/2023 8:19 EDT from Last 3 Months Results * LYME AB (10/05/2023 8:19 EDT) Lyme Ab Negative Negative 10/06/2023 11:[address] [facility] Blood VENOUS BLOOD / Unknown 10/05/2023 8:19 EDT 10/05/2023 18:01 EDT Provider Outr Resulting Lab IMMUNOLOGY A ND SEROLOGY ORDERABLES [facility] [address] [place] [address] from Last 3 Months Care Teams Florist Relationship Specialty Start Date End Date None, Provider PCP - General 01/31/13
--- OUTSIDE RECORDS SUMMARY | 2023-10-15 15:38 | XMS_ITS | Encounter Summary ---
Author Organization [facility] Address [address] [place] [address] Care Team Providers Care Metal Slitter Name Role Phone None, Provider Primary Care Provider Unavailabl e Encounter Details Date Type Department Care Team (Latest Contact Info) Description 12/08/2017 13:42 EDT - 12/08/2017 23:59 EDT Hospital Encounter [address] [address] Unknown, Provider, Discharge Disposition: Home or Self Care Social History Tobacco Use Types Packs/Day Years Used Date Smoking Tobacco: Never Assessed Sex and Gender Information Value Date Recorded Sex Assigned at Not on file Gender Identity Not on file Sexual Orientation Not on file documented as of this encounter Discharge Disposition Disposition Code Departure Means Destination Home or Self [facility] documented in this encounter Plan of Treatment Not on file documented as of this encounter Visit Diagnoses Not on filedocumented in this encounter Care Teams Metal Slitter Relationship Specialty Start Date End Date None, Provider PCP - General 01/31/13 documented as of this encounter
--- OUTSIDE RECORDS SUMMARY | 2023-10-15 15:38 | XMS_ITS | Encounter Summary ---
Author Organization [facility] Address [address] [place] [address] Care Team Providers Care Slipcover Cutter Name Role Phone Unavailable Primary Care Provider Unavailabl e Encounter Details Date Type Department Care Team (Late st Contact Info) Description 10/03/2007 Before PRISM Converted Visit (Maple) [facility] - Maple conversion [address] [place] [address] Mabel Mathis, [facility] [address] [place] [address] [place] [address] Social History Tobacco Use Types [...] Priority Date/Time Associated Diagnosis Comments CYTOPATHOLOGY Routine 10/03/2007 0:00 EDT documented in this encounter Results * CYTOPATHOLOGY (10/03/2007 0:00 EDT) Pathology Report: CYTOPATHOLOGY REPORT ? Reports generated via electronic interface contain original data; ? however they are lacking the format of the original report. ? Caution should be taken when reading/interpreti ng unformatted reports. ? Name: ? AURELIA KING ? Accession #: ? [id number] ? : ? 1980 (Age: 27) ??F ?Collect Date: ? 10/03/2007 ? Location: ? [facility] ? Receive Date: ? 10/03/2007 ? Provider: ?MABEL NORAH AREA LOSS PREVENTION MANAGER ? Copy to: ? Specimen/Source: ?ThinPrep Pap Test, Cervix/Endocervix, processed on Cytyc ThinPrep Imaging System, with manual evaluation ? Last Menstrual Period: ? 07/07/08 ? Other: ? HPVA - HPV testing requested if ASC-US on the current ThinPrep Pap test. ? SPECIMEN ADEQUACY ? Satisfactory for Evaluation ? - transformation zone component present ? - scant squamous epithelial component secondary to excessive mucus ? GENERAL CATEGORIZATION ? Negative for Intraepithelial Lesion or Malignancy ? Document reviewed and electronically signed by: ? Andrea Sheilaler, CT(ASCP) ? Report Date: ??10/07/2007 15:42 ? End of Report ? [facility] 10/03/2007 10/03/2007 Mabel Mathis AREA LOSS PREVENTION MANAGER PATHOLOGY ORDERABLES [facility] [address] [place] [address] documented in this encounter Visit Diagnoses Not on filedocumented in this encounter
--- OUTSIDE RECORDS SUMMARY | 2023-10-15 15:38 | XMS_ITS | Encounter Summary ---
Author Organization [facility] Address [address] [place] [address] Care Team Providers Care Soil Field Technician Name Role Phone None, Provider Primary Care Provider Unavailabl e Encounter Details Date Type Department Care Team (Late st Contact Info) Description 08/08/2022 Lab Requisition [facility] Pathology & Laboratory Medicine - [facility] [address] [place], [place] [id number] Outr Resulting Lab, Provider Social History Tobacco [...] Date/Time Associated Diagnosis Comments LYME AB Routine 08/07/2022 9:48 EDT documented in this encounter Results * LYME AB (08/07/2022 9:48 EDT) Lyme Ab Negative Negative 08/10/2022 11:35 EDT [facility] Blood VENOUS BLOOD / Unknown 08/07/2022 9:48 EDT 08/08/2022 21:05 EDT Provider Outr Resulting Lab IMMUNOLOGY A ND SEROLOGY ORDERABLES [facility] [address] [place] [address] documented in this encounter Visit Diagnoses Not on filedocumented in this encounter Care Teams Soil Field Technician Relationship Specialty Start Date End Date None, Provider PCP - General 01/31/13 documented as of this encounter
--- OUTSIDE RECORDS SUMMARY | 2023-10-15 15:38 | XMS_ITS | Encounter Summary ---
Author Organization [facility] Address [address] [place] [address] Care Team Providers Care Clinical Data Coordinator Name Role Phone Unavailable Primary Care Provider Unavailabl e Encounter Details Date Type Department Care Team (Late st Contact Info) Description 01/24/2013 Results Only [facility]- [facility] [phone] Javier Cortes MD [address] [facility] [address] [place] [address] Social History Tobacco Use Types Packs/Day Years Used Date Smoking Tobacco: Never Assessed Sex and Gender Information Value Date Recorded Sex Assigned at Not on file Gender Identity Not on file Sexual Orientation Not on file documented as of this encounter Plan of Treatment Not on file documented as of this encounter Procedures Procedure Name Priority Date/Time Associated Diagnosis Comments SURGICAL PATHOLOGY Routine 01/24/2013 14 :59 EST documented in this encounter Results * SURGICAL PATHOLOGY (01/24/2013 14:59 EST) Pathology Report: SURGICAL PATHOLOGY REPORT Reports generated via electronic interface contain original data; however they are lacking the format of the original report. Caution should be taken when reading/interpretin g unformatted reports. Name: ? AURELIA KING ? Accession #: ? [id number] ? : ? 1980 (Age: 32) ??F ? Collect Date: ? 01/24/2013 ? Location: ? [facility] ? Receive Date: ? 01/25/2013 ? Provider: FAM CORTES MD Copy to: ? Final Pathologic Diagnosis: A. ?DUODENUM, SECOND PORTION AND BULB, BIOPSY: ?- ??Duodenal mucosa with a slight increase in intraepithelial lymphocytes. See comment. B. STOMACH, ANTRUM, BIOPSY: ? - ??Antral and junctional-type gastric mucosa with mild reactive changes. ?- ??No Helicobacter pylori-like microorganisms identified on H&E-stained sections. ? C. GASTROESOPHAGEAL JUNCTION, BIOPSY: ? - ??Squamous mucosa with rare intraepithelial eosinophils (less than five per high-power field), consistent with reflux esophagitis. - ??Gastric type mucosa with mild chronic and focal active inflammation. ?- ??No Helicobacter pylori-like microorganisms identified on H&E-stained sections. ? - ??No intestinal metaplasia or dysplasia is seen. D. COLON, TRANSVERSE, BIOPSY: ? - ??Colonic mucosa with no specific pathologic features. E. COLON, SIGMOID, BIOPSY: ? - ??Clonic mucosa with no specific pathologic features. Comment: ? In the duodenum, there is a slight increase in intraepithelial lymphocytes without overt villous blunting. ??The findings may represent evolving or partially treated gluten-sensitive enteropathy (celiac sprue). ??Serologic studies may be further contributory. ? Document reviewed and electronically signed by: TRAVIS BERGER MD Report ??Date: 01/28/2013 09:03 By the signature above, the attending physician certifies that he/she has personally conducted a gross and/or microscopic examination of the described specimens and rendered or confirmed the above diagnosis. Specimen(s) Received: B. ?2nd portion & bulb C. ? Antrum D. ? GE junction E. ? Transverse colon F. ? Sigmoid Clinical History: Abd. Pain, gastritis, esophagitis, r/o celiac, H. pylori, Dunaway's, microscopic colitis; clinical diagnosis code: ??789.07 Gross Description: A. ?Received in formalin labelled with proper patient identification (initials B, T) and A. second portion + bulb are two rowe-white tissues (0.5 x 0.2 x 0.1 cm and 0.4 x 0.3 x 0.2 cm). Entirely submitted in A1. B. ?Received in formalin labelled with proper patient identification (initials B, T) and B. antrum are two rowe-white tissues (0.6 x 0.2 x 0.1 cm and 0.4 x 0.2 x 0.2 cm). Entirely submitted in B1. C. ?Received in formalin labelled with proper patient identification (initials B, T) and C. GE junction is a single white, focally light rowe tissue fragment (0.7 x 0.2 x 0.1 cm). Submitted intact in C1. D. ?Received in formalin labelled with proper patient identification (initials B, T) and D. transverse colon is a single rowe-white tissue fragment (0.7 x 0.3 x 0.1 cm). Submitted intact in D1. E. ?Received in formalin labelled with proper patient identification (initials B, T) and E. sigmoid is a single rowe-white tissue fragment (0.4 x 0.3 x 0.2 cm). Submitted intact in E1. Cecil Alcala 01/25/2013 03:50 PM End of Report [facility] 01/24/2013 14:5 9 EST 01/25/2013 14:59 EST Javier Cortes MD PATHOLOGY ORDERABLES [facility] [address] [place] [address] documented in this encounter Visit Diagnoses Not on filedocumented in this encounter
--- OUTSIDE RECORDS SUMMARY | 2023-10-15 15:38 | XMS_ITS | Encounter Summary ---
Author Organization [facility] Address [address] [place] [address] Care Team Providers Care Pockets And Pieces Necktie Operator Name Role Phone None, Provider Primary Care Provider Unavailabl e Encounter Details Date Type Department Care Team (Late st Contact Info) Description 04/03/2022 Lab Requisition [facility] Pathology & Laboratory Medicine - [facility] [address] [place] [address] Outr Resulting Lab, Provider Social History Tobacco [...] Procedure Name Priority Date/Time Associated Diagnosis Comments CHLAMYDIA/N. GONORRHOEAE AMPLIFIED NUCLEIC ACID, THINPREP Routine 04/03/2022 15:00 EST documented in this encounter Results * CHLAMYDIA/N. GONORRHOEAE AMPLIFIED RNA, THINPREP (04/03/2022 15:00 EST) Neisseria gonorrhoeae Result Negative Negative 04/16/2022 9:49 EST [facility] Chlamydia trachomatis Result Negative Negative 04/16/2022 9:49 EST [facility] Papanicolaou smear specimen (specimen) CERVIX UTERI STRUCTURE / Unknown 04/03/2022 15:00 EST 04/05/2022 9:26 EST Provider Outr Resulting Lab MICROBIOLOGY - GENERAL ORDERABLES [facility] [address] [place] [address] documented in this encounter Visit Diagnoses Not on filedocumented in this encounter Care Teams Pockets And Pieces Necktie Operator Relationship Specialty Start Date End Date None, Provider PCP - General 01/31/13 documented as of this encounter
--- OUTSIDE RECORDS SUMMARY | 2023-10-15 15:38 | XMS_ITS | Encounter Summary ---
Author Organization [facility] Address [address] [place] [address] Care Team Providers Care Shirt Maker Name Role Phone None, Provider Primary Care Provider Unavailabl e Encounter Details Date Type Department Care Team (Late st Contact Info) Description 10/08/2020 Lab Requisition [facility] Pathology & Laboratory Medicine - [facility] [address] [place] [address] Outr Resulting Lab, Provider Social History Tobacco [...] Name Priority Date/Time Associated Diagnosis Comments LYME ANTIBODY CONFIRMATION Today 10/08/2020 11:00 EDT LYME AB Routine 10/08/2020 11:00 EDT documented in this encounter Results * (ABNORMAL) LYME ANTIBODY CONFIRMATION (10/08/2020 11:00 EDT) Lyme IgG Antibody Negative Negative 021 13:09 EDT [facility] Comment:Specific anti-Borrel ia burgdorfei IgG antibodies are not detected. This does not exclude the possibility of B. burgdorferi infection. If exposure to B. burgdorferi is suspected, a second sample should be collected and tested 2-4 weeks later. Lyme IgM Antibody Positive(A) Negative 2020 13:09 EDT [facility] Comment:Specific anti-Borrel ia burgdorfei IgM antibodies are detected. Lyme Antibody Confirmation Interpretation See Comment 10/09/2020 13:09 EDT [facility] Comment:Indicative of possib le early B. burgdorferi infection, as Lyme IgM is of diagnostic utility only during the first four weeks after the onset of disease. In these cases a second serum specimen can be analyzed in 2-4 weeks to demonstrate seroconversion of IgG. Otherwise, specimens collected more than 1 month following the onset of disease with positive IgM and Negative IgG results more likely represent a false-positive. Blood VENOUS BLOOD / Unknown 10/08/2020 11:00 EDT 10/08/2020 15:43 EDT Narrative [facility] - 10/09/2020 13:09 EDT New methodology in use 09/30/2020. Provider Outr Resulting Lab IMMUNOLOGY A ND SEROLOGY ORDERABLES Performing Organization Address [facility] Co de Phone Number [facility] [address] [place] [address] * (ABNORMAL) LYME AB (10/08/2020 11:00 EDT) Lyme Ab Positive( A) Negative 10/09/2020 11:57 EDT [facility] Comment: Lyme confirmation added by reflex. The [employer] Lyme Liaison Lyme Total Antibody Plus assay contains antigens from Borrelia burgdorferi, Borrelia garinii, and Borelia afzelli. Results from the second-step confirmation tests that detect only B. burgdorferi specific antigens should be interpreted with caution. Blood VENOUS BLOOD / Unknown 10/08/2020 11:00 EDT 10/08/2020 15:43 EDT Provider Outr Resulting Lab IMMUNOLOGY A ND SEROLOGY ORDERABLES Performing Organization Address City/[facility] Co de Phone Number [facility] [address] [place] [address] documented in this encounter Visit Diagnoses Not on filedocumented in this encounter Care Teams Shirt Maker Relationship Specialty Start Date End Date None, Provider PCP - General 01/31/13 documented as of this encounter
--- OUTSIDE RECORDS SUMMARY | 2023-10-15 15:38 | XMS_ITS | Encounter Summary ---
Author Organization [facility] Address [address] [place] [address] Care Team Providers Care Vehicle Return Associate Name Role Phone None, Provider Primary Care Provider Unavailabl e Encounter Details Date Type Department Care Team (Late st Contact Info) Description 07/15/2016 Results Only [facility] [phone] Stephanie Ag, DO [address] [place] [address] Social History Tobacco Use Types Packs/Day Years Used Date Smoking Tobacco: Never Assessed Sex and Gender Information Value Date Recorded Sex Assigned at Not on file Gender Identity Not on file Sexual Orientation Not on file documented as of this encounter Plan of Treatment Not on file documented as of this encounter Procedures Procedure Name Priority Date/Time Associated Diagnosis Comments SURGICAL PATHOLOGY Routine 07/15/2016 9:02 EDT documented in this encounter Results * SURGICAL PATHOLOGY (07/15/2016 9:02 EDT) Pathology Report: SURGICAL PATHOLOGY REPORT Reports generated via electronic interface contain original data; however they are lacking the format of the original report. Caution should be taken when reading/interpret ing unformatted reports. Name: ? AURELIA KING ? Accession #: ? [id number] ? : ? 1980 (Age: 36) ??F ? Collect Date: ? 07/15/2016 ? Location: ? [facility] ? Receive Date: ? 07/15/2016 ? Provider: STEPHANIE AG DO Copy to: HYAICNTH MARTINES MD ? Final Pathologic Diagnosis: GALLBLADDER, CHOLECYSTECTOMY: - ??Chronic cholecystitis with cholesterolosis. - ??Cholelithiasis. Comment: There are foci of reactive/ reparative epithelial change. Case reviewed at the intradepartmental GI consensus conference. Document reviewed and electronically signed by: MARIA ESTHER SAGE MD Report ??Date: 07/20/2016 10:11 By the signature above, the attending physician certifies that he/she has personally conducted a gross and/or microscopic examination of the described specimens and rendered or confirmed the above diagnosis. Specimen(s) Received: Gallbladder Clinical History: Biliary colic; clinical diagnosis code: ??K80.5 Gross Description: ? Received in formalin labelled with proper patient identification (initials B, T) and gallbladder is an intact gallbladder (7.5 x 2.8 x 2.3 cm) with a segment of cystic duct (0.5 cm in length x 0.2 cm in diameter). ? The serosa is wrinkled pink-purple to yellow and dull. The mucosa is velvety and dark green to bright yellow and the wall is 0.1 cm in thickness. The cystic duct lumen is patent and unremarkable. The cystic duct margin is inked blue. A single 2.5 cm in greatest dimension granular green to yellow cholelith is present. ? Two sales representative door to door sections and the inked en face cystic duct margin are submitted in 1. WILLIS Hsu (ASCP) 07/16/2016 10:07 AM End of Report [facility] 07/15/2016 9:02 EDT 07/15/2016 9:02 EDT Stephanie Ag DO PATHOLOGY ORDERABLES [facility] [address] [place] [address] documented in this encounter Visit Diagnoses Not on filedocumented in this encounter Care Teams Vehicle Return Associate Relationship Specialty Start Date End Date None, Provider PCP - General 01/31/13 documented as of this encounter
--- OUTSIDE RECORDS SUMMARY | 2023-10-15 15:38 | XMS_ITS | Encounter Summary ---
Author Organization [facility] Address [address] [place] [address] Care Team Providers Care Radiology Physician Assistant Name Role Phone Unavailable Primary Care Provider Unavailabl e Encounter Details Date Type Department Care Team (Late st Contact Info) Description 07/26/2012 Results Only [facility] [address] [place] [address] Mabel Mathis, [facility] [address] [place] [address] [place] [address] Social History Tobacco Use Types [...] Diagnosis Comments PAP TEST- RESULT ONLY Routine 07/26/2012 0:00 EDT documented in this encounter Results * PAP TEST- RESULT ONLY (07/26/2012 0:00 EDT) Pathology Report: CYTOPATHOLOGY REPORT Reports generated via electronic interface contain original data; however they are lacking the format of the original report. Caution should be taken when reading/interpreti ng unformatted reports. Name: ? AURELIA KING ? Accession #: ? [id number] : ? 1980 (Age: 32) ??F ?Collect Date: ? 07/26/2012 Location: ? [facility] ? Receive Date: ? 07/27/2012 Provider: ?MABEL MATHIS MAINFRAME ANALYST Copy to: ? Specimen/Source: ?Pap Test, Cervix/Endocervix, ThinPrep Imaging System with manual evaluation Last Menstrual Period: ? 4 months ago ? SPECIMEN ADEQUACY ? Unsatisfactory for Evaluation, - insufficient numbers of squamous epithelial cells (less than 10% of expected cellularity) - sample preparation compromised by excessive blood - obscuring contamination, possibly lubricant GENERAL CATEGORIZATION ? Specimen processed and examined, but unsatisfactory for evaluation of epithelial abnormality. Recommend repeat Pap test or further follow up, as clinically indicated. ? Document reviewed and electronically signed by: ? ESAU Abraham(ASCP) ? Report Date: ??08/02/2012 08:53 End of Report [facility] 07/26/2012 07/27/2012 Mabel Mathis MAINFRAME ANALYST PATHOLOGY ORDERABLES Performing Organization Address City/State/[facility] Co de Phone Number [facility] [address] [place] [address] documented in this encounter Visit Diagnoses Not on filedocumented in this encounter
--- OUTSIDE RECORDS SUMMARY | 2023-10-15 15:38 | XMS_ITS | Encounter Summary ---
Author Organization [facility] Address [address] [place] [address] Care Team Providers Care Pin Chaser Name Role Phone None, Provider Primary Care Provider Unavailabl e Encounter Details Date Type Department Care Team (Late st Contact Info) Description 02/11/2021 Lab Requisition [facility] Pathology & Laboratory Medicine - [facility] [address] [place] [address] Mari Laura, VENETIAN BLIND INSTALLER [address] [place] [address] Encounter for other general examination Social History [...] Date/Time Associated Diagnosis Comments PAP TEST Today 02/10/2021 15:45 EST Encounter for other general examination HPV DNA DETECTION WITH GENOTYPING, PCR Today 02/10/2021 15:45 EST Encounter for other general examination documented in this encounter Results * (ABNORMAL) HUMAN PAPILLOMAVIRUS (HPV) DETECTION-HIGH RISK TYPES (02/10/2021 15:45 EST) HPV other High Risk types, PCR Positive( A) Negative 02/18/2021 14:26 EST [facility] Comment:E6 OR E7 mRNA from o ne or more types of HPV types 16,18,31,33,35,39,45,51,52,56,58,59,66, and 68 is detected by orange grower mediated amplification. High and intermediate risk HPV types are associated with most squamous intraepithelial lesions and cervical cancers. Papanicolaou smear specimen (specimen) CERVIX UTERI STRUCTURE / Unknown 02/10/2021 15:45 EST 02/17/2021 10:47 EST Mari Laura APRN MICROBIOLOGY - GE NERAL ORDERABLES [facility] [address] [place] [address] * PAP TEST (02/10/2021 15:45 EST) Specimens A. Cervix and/or Endocervix , ThinPrep Imaging System with Manual Evaluation 02/18/2021 14:26 [facility] Specimen Adequacy Satisfactory for Evaluation - transformation zone component present 02/18/2021 14:26 [facility] General Categorization Epithelial Cell Abnormality 02/18/2021 14:26 [facility] Descriptive Diagnosis Squamous Cell Abnormality - Low grade squamous intraepithelial lesion (LSIL). 02/18/2021 14:26 [facility] Educational Comments [facility] recommends following ASCCP's 2012 Updated Consensus Guidelines for the Management of Abnormal Cervical Cancer Screening Tests and Cancer Precursors (JLGTD, 2013; 17(5):S1-S27). Consensus guidelines are available online at www.asccp.org. 02/18/2021 14:26 [facility] Attestation By the signature below, the attending physician certifies that they have personally conducted a gross and/or microscopic examination of the described specimens and rendered or confirmed the above diagnosis. 02/18/2021 14:26 [facility] at 1426 Clinical History See below 02/19/20 14:26 [facility] HPV The result for the Human Papillomavirus (HPV) Detection-High Risk Types is Positive . E6 OR E7 mRNA from one or more types of HPV types 16,18,31,33,35,39 ,45,51,52,56,58,5 9,66, and 68 is detected by orange grower mediated amplification. High and intermediate risk HPV types are associated with most squamous intraepithelial lesions and cervical cancers. Testing was performed on specimen [id number] and was resulted on 02/18/2021 1425 EST by JOSE, LAB INSTRUMENT RESULTS IN 02/18/2021 14:26 EST [facility] Performing Lab [facility] 02/18/2021 14:26 EST [facility] Scanned Images 02/18/2021 14:26 EST [facility] Papanicolaou smear specimen (specimen) CERVIX UTERI STRUCTURE / Unknown 02/10/2021 15:45 EST 02/11/2021 10:33 EST Mari A Keya VENETIAN BLIND INSTALLER PATHOLOGY ORDERAB LES [facility] [address] [place] [address] documented in this encounter Visit Diagnoses Diagnosis Encounter for other general examination documented in this encounter Care Teams Pin Chaser Relationship Specialty Start Date End Date None, Provider PCP - General 01/31/13 documented as of this encounter
--- OUTSIDE RECORDS SUMMARY | 2023-10-15 15:38 | XMS_ITS | Encounter Summary ---
Author Organization [facility] Address [address] [place] [address] Care Team Providers Care Oral And Maxillofacial Surgery Name Role Phone None, Provider Primary Care Provider Unavailabl e Encounter Details Date Type Department Care Team (Late st Contact Info) Description 04/24/2022 Lab Requisition [facility] Pathology & Laboratory Medicine - [facility] [address] [place] [address] Ella Preciado [address] [place] [address] [place] [id number] Encounter for other general examination Social History [...] Date/Time Associated Diagnosis Comments SURGICAL PATHOLOGY Today 04/24/2022 8: 40 EST Encounter for other general examination documented in this encounter Results * SURGICAL PATHOLOGY (04/24/2022 8:40 EST) Addendum Comment Original pap will be correlated and reported in an addendum 04/30/2022 13:20 EST [facility] Addendum electronically signed by Madie Enriquez MD on 04/30/2022 at 1320 Note to Patient The following pathology results have been interpreted by your pathologist and may be available to you before your health provider has had the opportunity to review them. Please allow time for your provider to receive these results and explore management options, if applicable. 04/30/2022 13:20 [facility] Final Diagnosis A. ENDOCERVIX, CURRETAGE: - Inflammatory debris and scattered squamous cells - Deeper levels examined B. CERVIX, 6:00, BIOPSY: - Endocervical tissue with no significant pathologic abnormality - Deeper levels are examined 04/30/2022 13:20 [facility] Attestation By the signature below, the attending physician certifies that they have 1) personally conducted a gross and/or microscopic examination of the described specimen(s), and/or personally interpreted the results of laboratory testing of the described specimen(s), and 2) personally rendered or confirmed the above diagnosis. 04/30/2022 13:20 [facility] at 1320 Clinical History LSIL 04/30/2022 13:20 [facility] Gross Description A. Received in formalin labelled with proper patient identification (initials B, T) and endocervical is an aggregate of slightly cloudy mucus, 1.8 x 1.5 x 0.2 cm. Entirely submitted in A1. B. Received in formalin labelled with proper patient identification (initials B, T) and Bx 6 o'clock cervical is a rowe-redding tissue, 0.4 x 0.3 x 0.2 cm. Entirely submitted in B1. WILLIS BRYAN(ASCP) 04/27/2022 8:21 04/30/2022 13:20 [facility] Performing Lab [facility] 04/30/2022 13:20 [facility] Scanned Images 04/30/2022 13:20 [facility] Tissue ENTIRE WALL OF CERVIX / Unknown 04/24/2022 8:40 EST 04/24/2022 21:03 EST Tissue specimen (specimen) CERVIX UTERI STRUCTURE / Unknown 04/24/2022 8:40 EST 04/24/2022 21:03 EST Ella Preciado PATHOLOGY ORDERABLES [facility] [address] [place] [address] documented in this encounter Visit Diagnoses Diagnosis Encounter for other general examination documented in this encounter Care Teams Oral And Maxillofacial Surgery Relationship Specialty Start Date End Date None, Provider PCP - General 01/31/13 documented as of this encounter
--- OUTSIDE RECORDS SUMMARY | 2023-10-15 15:38 | XMS_ITS | Encounter Summary ---
Author Organization [facility] Address [address] [place] [address] Care Team Providers Care Senior Asic Engineer Name Role Phone None, Provider Primary Care Provider Unavailabl e Encounter Details Date Type Department Care Team (Late st Contact Info) Description 12/08/2017 Results Only [facility] [phone] Andrzej Patrick MD [address] [place] [address] Social History Tobacco Use Types Packs/Day Years Used Date Smoking Tobacco: Never Assessed Sex and Gender Information Value Date Recorded Sex Assigned at Not on file Gender Identity Not on file Sexual Orientation Not on file documented as of this encounter Plan of Treatment Not on file documented as of this encounter Procedures Procedure Name Priority Date/Time Associated Diagnosis Comments SURGICAL PATHOLOGY Routine 12/08/2017 9:16 EDT documented in this encounter Results * SURGICAL PATHOLOGY (12/08/2017 9:16 EDT) Pathology Report: SURGICAL PATHOLOGY REPORT Reports generated via electronic interface contain original data; however they are lacking the format of the original report. Caution should be taken when reading/interpret ing unformatted reports. Name: ? AURELIA KING ? Accession #: ? [id number] ? : ? 1980 (Age: 37) ??F ? Collect Date: ? 12/08/2017 ? Location: ? [facility] ? Receive Date: ? 12/08/2017 ? Provider: ANDRZEJ PATRICK MD Copy to: HYACINTH MARTINES MD ? Final Pathologic Diagnosis: ENDOCERVIX, CURETTAGE: - No tissue present for histological evaluation. ??See comment. Comment: This specimen was scant at time of grossing and following processing, no tissue was available for histological evaluation on multiple levels. ??We have reviewed the previous Pap smear ([id number]) and agree with the diagnosis of ASCUS. ??(Dr. Valerio)/mpl Document reviewed and electronically signed by: MADI LIMON MD Report ??Date: 12/13/2017 17:40 By the signature above, the attending physician certifies that he/she has personally conducted a gross and/or microscopic examination of the described specimens and rendered or confirmed the above diagnosis. Specimen(s) Received: ECC Clinical History: 11/12/17 ASCUS +HPV, Mirena, neg test Gross Description: ? Received in formalin labelled with proper patient identification (initials B, T) and ECC is an aggregate of a scant amount of viscous material (less than 0.1 x 0.1 x 0.1 cm). Submitted in toto in 1. Leroy Porter 12/09/2017 10:00 AM End of Report [facility] 12/08/2017 9:16 EDT 12/08/2017 9:16 EDT Andrzej Patrick MD PATHOLOGY ORDERABLES [facility] [address] [place] [address] documented in this encounter Visit Diagnoses Not on filedocumented in this encounter Care Teams Senior Asic Engineer Relationship Specialty Start Date End Date None, Provider PCP - General 01/31/13 documented as of this encounter
--- OUTSIDE RECORDS SUMMARY | 2023-10-15 15:38 | XMS_ITS | Encounter Summary ---
Author Organization [facility] Address [address] [place] [address] Care Team Providers Care Bpm Developer Name Role Phone Unavailable Primary Care Provider Unavailabl e Encounter Details Date Type Department Care Team (Late st Contact Info) Description 08/05/2012 Results Only [facility] Laboratory Services - [facility] ([facility] [address] [place] [address] Mabel Mathis, [facility] [address] [place] [address] [place] [address] Social History Tobacco Use Types [...] Diagnosis Comments PAP TEST- RESULT ONLY Routine 08/05/2012 0:00 EDT documented in this encounter Results * PAP TEST- RESULT ONLY (08/05/2012 0:00 EDT) Pathology Report: CYTOPATHOLOGY REPORT Reports generated via electronic interface contain original data; however they are lacking the format of the original report. Caution should be taken when reading/interpreti ng unformatted reports. Name: ? AURELIA KING ? Accession #: ? [id number] : ? 1980 (Age: 32) ??F ?Collect Date: ? 08/05/2012 Location: ? [facility] ? Receive Date: ? 08/09/2012 Provider: ?MABEL MATHIS SLEEVE TURNER Copy to: ? Specimen/Source: ?Pap Test, Cervix/Endocervix, ThinPrep Imaging System with manual evaluation Last Menstrual Period: ? 07/26/12 Other: ? Additional clinical information: pap 07/26/12 unsatisfactory ? SPECIMEN ADEQUACY ? Unsatisfactory for Evaluation, - insufficient numbers of squamous epithelial cells (less than 10% of expected cellularity) - sample preparation compromised by excessive mucus GENERAL CATEGORIZATION ? Specimen processed and examined, but unsatisfactory for evaluation of epithelial abnormality. Recommend repeat Pap test or further follow up, as clinically indicated. ? Document reviewed and electronically signed by: ? ESAU Rondon(ASCP) ? Report Date: ??08/17/2012 07:48 End of Report [facility] 08/05/2012 08/09/2012 Mabel Mathis SLEEVE TURNER PATHOLOGY ORDERABLES [facility] [address] [place] [address] documented in this encounter Visit Diagnoses Not on filedocumented in this encounter
== END 2023-10-15 15:34 | disposition home or self-care (01) ==
LOC: NCHCN 15:33
PROVIDERS: PCP Nurse Practitioner Family; Visit Provider Nurse Practitioner Family
DX: R53.83 Other fatigue (principal); R74.8 Abnormal levels of other serum enzymes; G89.29 Other chronic pain
CPT/HCPCS: 80053; 85027; 82728; 83540; 83550; 83735; 84443

== ENCOUNTER 2024-08-10 18:28 | Emergency (ER) | payer BC, SELFPAY ==
[2024-08-10 18:35] VITALS: BP 133/90; PULSE 85; RESP 20; TEMP 37.7; O2SAT 98
--- NOTE | 2024-08-10 18:53 | ED.GENADUL_ITS ---
Discharge Plan Disposition Patient Disposition: Home Condition: Stable Discharge Details Clinical Impression: Tick bite Primary Care Provider: Cyndie Evans ED Provider: Timbo Garcia Home Meds and New Rx's Prescriptions: Continued buprenorphine-naloxone [Suboxone] 1 EACH film 2 film Sublingual DAILY Qty: 2 Patient Comments: Mirena 1 EACH intrauterine device 1 ea Intrauterine q5yr Qty: 1 ibuprofen 800 mg tablet 800 mg PO Q8H Qty: 30 1RF oxybutynin chloride 10 mg tablet extended release 24hr 10 mg PO DAILY Patient Comments: TAKE ONE TABLET BY MOUTH EVERY DAY dextroamphetamine-amphetamine 20 mg capsule,extended release 24hr 20 mg PO BID Patient Comments: TAKE ONE CAPSULE BY MOUTH TWICE A DAY FOR INATTENTION Discharge Instructions Instructions: Insect Bites and Stings ED Additional Instructions: You were seen in the emergency department for your tick bite of the right abdomen, it appears noninfected and does not appear to have the rash of Lyme disease at this time, regardless we are going to treat with 1 dose of 200 mg of doxycycline to prevent Lyme disease, please watch the area for any target-like lesions, return for any fever body aches or palpitations or any other emergent concern. Referrals: Cyndie Evans [Primary Care Provider] - Discharge Data Discharge Date/Time-TO BE ENTERED AT DEPARTURE: 08/10/24 19:42 HPI General Date/Time Provider Initiated Documentation: 08/10/24 18:53 . HPI Narrative: 44 year-old female presents to ED today by POV/ambulating with a chief complaint of tick bite to R axillary/anterior abdomen with onset today. Quality described as small macular area of purplish/red around the bite, tick was already removed without issue, no radiation to fever, body aches, large rash, central clearing. Severity is described as 0/10. Palliating factors include nothing specific. Provoking factors include nothing specific. Patient not anticoagulated. Related Data Home Medications ?Medication ?Instructions ?Recorded ?Confirmed buprenorphine 8 mg-naloxone 2 mg 2 film sublingual DAILY #2 film 11/23/13 08/10/24 sublingual film (Suboxone) levonorgestrel 21 mcg/24 hr (up to 1 ea intrauterine q5yr #1 ea 08/26/16 08/10/24 8 years) 52 mg intrauterine device (Mirena) ibuprofen 800 mg tablet 800 mg PO Q8H #30 tabs 08/13/22 08/10/24 dextroamphetamine-amphetamine ER 20 mg PO BID 08/10/24 08/10/24 20 mg 24hr capsule,extend release oxybutynin chloride 10 mg 10 mg PO DAILY 08/10/24 08/10/24 tablet,extended release 24 hr Previous Rx's ?Medication ?Instructions ?Recorded ibuprofen 800 mg tablet 800 mg PO Q8H #30 tabs 08/13/22 Allergies Allergy/AdvReac Type Severity Reaction Status Date / Time latex Allergy Intermediate Skin Rash Unverified 08/10/24 18:38 Chapstick Allergy Intermediate Swelling/Ed Uncoded 08/10/24 18:38 mikey General Stated Complaint: InsectBite BRENDA: 4 Review of Systems All systems reviewed & are unremarkable except as noted in HPI and below Exam Narrative Exam Narrative: GENERAL APPEARANCE: Well-nourished, non-toxic, awake and alert, atraumatic, no acute distress. SKIN: Warm, pink, dry, small 0.2 cm macular area of purplish erythema around the tick bite that had been removed HEAD: Normocephalic, atraumatic, normal hair distribution for gender/age. EYES: Normal conjunctiva, no exudates on lids/lashes. ENT: Nares patent, no circumoral cyanosis, no facial swelling NECK: Supple, trachea midline, painless cervical ROM. LUNGS/CHEST: Non-labored respirations, normal A/P diameter, symmetrical expansion, no chest wall deformity HEART (CV/PV): No peripheral edema, no JVD. ABDOMEN: Soft, non-distended, no guarding. MSK: Normal ROM, no swelling/deformity to bilateral UEs or LEs, moving all extremities without weakness, no cyanosis, spine midline without tenderness, normal curvature. NEURO: Mental Status AAOx4 - alert to person, place, time, events No facial droop, no forehead involvement. Motor: No focal weakness - strength 5/5 in bilateral UEs and LEs, proximal and distal, symmetric. Sensory: sensation intact to light touch globally. Gait normal: patient ambulated without ataxia into ED room. PSYCH: euthymic, cooperative, pleasant, appropriate speech Course Vital Signs Vital signs: Vital Signs Temperature 37.7 C H 08/10/24 18:35 Pulse 85 08/10/24 18:35 Respiratory Rate 20 08/10/24 18:35 Blood Pressure 133/90 08/10/24 18:35 Pulse Oximetry 98 08/10/24 18:35 Temperature 37.7 C H 08/10/24 18:35 Pulse 85 08/10/24 18:35 Respiratory Rate 20 08/10/24 18:35 Blood Pressure 133/90 08/10/24 18:35 Blood Pressure Position Sitting 08/10/24 18:35 Pulse Oximetry 98 08/10/24 18:35 Oxygen Delivery Method Room Air 08/10/24 18:35 Oxygen Flow Rate 0 08/10/24 18:35 Medical Decision Making This dictation utilizes [id number] dictation software and may contain unedited grammatical errors. 44 year-old female presents to ED today by POV/ambulating with a chief complaint of tick bite to R axillary/anterior abdomen with onset today. Quality described as small macular area of purplish/red around the bite, tick was already removed without issue, no radiation to fever, body aches, large rash, central clearing. Severity is described as 0/10. Palliating factors include nothing specific. Provoking factors include nothing specific. Patients' medical history: History of Lyme disease. Family and social history: Noncontributory. Pertinent exam findings / vital signs include small 0.2 cm macular area of purplish erythema around the tick bite that had been removed, benign cardiopulmonary status with no other complaint. Differential / pathologies of concern include tick bite. Diagnostic studies of: - None. Interventions of: - 200 mg doxycycline prophylactic dose. ED Course/Assessment/Plan: 44-year-old female presents with tick bite abdomen noticed today, tick is likely on for less than 24 hours, no rash of erythema migrans, reasonable to prophylax with single dose doxycycline and careful observation at home, counseled on strict return criteria for any developing fever body aches palpitations or worsening rash around the bite site. Findings not consistent with erythema migrans or Lyme disease. Disposition of tick bite. Patient verbalized understanding of the plan and return to ED criteria and engaged in shared decision making. Medical Records Medical records reviewed: Yes I reviewed the patient's medical records. Quality:SDOH Health Related Social Needs: No Data to Display PFSH All Active Problems (Updated 08/10/24 @ 19:32 by WILLIS Escalera) Tick bite (Acute) Postoperative state (Acute) Status post laparoscopic bilateral salpingectomy 08/04 Low back pain (Acute) Abnormal Pap smear of cervix (Acute) LSIL positive PAP 01/2021. Colpo 02/2021. Needs repeat PAP smear. Colpo with biopsy 03/2022, negative. Repeat Pap smear with HPV testing 03/2023. 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/15) ASCUS/HPV+, benign colp 2017 LSIL/HPV+, colp 2020 Opioid dependence Pelvic pain Situational anxiety Surgical History Cholecystectomy (07/15/16) S/P rotator cuff repair Family History Father Diabetes Social History Smoking/Tobacco Use Status: Never Smoking risk assessment performed?: Yes Alcohol Intake: never Drug use: Current Sobriety Adopted: No Seatbelt use: always Do you feel safe at home: Yes Do you feel safe in your relationship?: Yes Female Reproductive History Menstrual control method: progestin IUCD PAWSS Have you Been Recently Intoxicated or Drunk Within the Last 30 days?: No Have you Ever Experienced Previous Episodes of Alcohol Withdrawal?: No Have you ever Experienced Withdrawal Seizures?: No Have you ever Experienced Delirium Tremens(DT)s?: No Have you ever undergone Alcohol Rehabilitation Treatment (i.e, inpt ot outpatient treatment programs)?: No Have you ever Experienced Blackouts?: No Have you ever Combined Alcohol with other Downers within the last 90 days?: No Have you ever Combined Alcohol with any other Substance of Abuse during the last 90 days?: No Positive Blood Alcohol level on Presentation? [PCS.BAL]: No Evidence of Increased Autonomic Activity (i.e. HR>120, tremor, sweating, agitation, nausea)?: No Result: 0
[2024-08-10] MEDS: Doxycycline Hyclate 100 MG CAP 200 MG PO (19:39)
== END 2024-08-10 19:42 | disposition home or self-care (01) ==
LOC: ER 19:55
PROVIDERS: Emergency Provider Physician Assistant; PCP Nurse Practitioner Family
DX: S30.861A Insect bite (nonvenomous) of abdominal wall, initial encounter (principal); W57.XXXA Bitten or stung by nonvenomous insect and other nonvenomous arthropods, initial encounter; Y93.89 Activity, other specified; Y92.89 Other specified places as the place of occurrence of the external cause
CPT/HCPCS: 99283

== ENCOUNTER 2024-08-17 18:38 | Outpatient (REF) | payer BC, SELFPAY ==
[2024-08-21 12:09] LABS: Lyme Ab w Rflx to Lyme Confirm Negative (Negative)
== END 2024-08-17 18:39 | disposition home or self-care (01) ==
LOC: NCHCN 18:38
PROVIDERS: PCP Nurse Practitioner Family; Visit Provider Nurse Practitioner Family
DX: W57.XXXA Bitten or stung by nonvenomous insect and other nonvenomous arthropods, initial encounter (principal)
CPT/HCPCS: 86618

== ENCOUNTER 2024-10-31 20:38 | Emergency (ER) | payer BC, SELFPAY ==
[2024-10-31 20:44] VITALS: BP 138/91; PULSE 107; RESP 18; TEMP 36.6; O2SAT 97
--- NOTE | 2024-10-31 21:01 | W.ED.GENAD ---
Discharge Plan Disposition Patient Disposition: Home Condition: Stable Discharge Details Clinical Impression: Hematoma of right thigh Primary Care Provider: Cyndie Evans ED Provider: Nikos Laura Home Meds and New Rx's Prescriptions: New lidocaine 5 % adhesive patch,medicated 1 patch topical DAILY Qty: 30 0RF Rx Instructions: leave on most painful area for up to 12 hrs Continued buprenorphine-naloxone [Suboxone] 1 EACH film 2 film Sublingual DAILY Qty: 2 Patient Comments: Mirena 1 EACH intrauterine device 1 ea Intrauterine q5yr Qty: 1 ibuprofen 800 mg tablet 800 mg PO Q8H Qty: 30 1RF oxybutynin chloride 10 mg tablet extended release 24hr 10 mg PO DAILY Patient Comments: TAKE ONE TABLET BY MOUTH EVERY DAY dextroamphetamine-amphetamine 20 mg capsule,extended release 24hr 20 mg PO BID Patient Comments: TAKE ONE CAPSULE BY MOUTH TWICE A DAY FOR INATTENTION cyclobenzaprine 10 mg tablet 10 mg PO TID Patient Comments: TAKE ONE TABLET BY MOUTH THREE TIMES A DAY NEEDED FOR MUSCLE SPASMS ketorolac 10 mg tablet 10 mg PO Q6H Patient Comments: TAKE 1 TABLET BY MOUTH FOUR TIMES A DAY NEEDED FOR PAIN, NOT TO EXCEED 4 TABLETS/ DAY AND 5 DAYS DURATION FOR ALL DOSE FORMS prednisone 50 mg tablet 50 mg PO DAILY Patient Comments: TAKE ONE TABLET BY MOUTH EVERY DAY Discharge Instructions Additional Instructions: You have a hematoma which is a collection of blood in your thigh. This will resolve with time. Wearing the compression bandages can help it resolve quicker. Follow-up with your primary care provider. If you feel more ill or have new symptoms such as high fevers return to emergency department for reevaluation. You should not be taking Toradol for more than 5 days. Once you are done taking it for 5 days you can start taking ibuprofen the following day. HPI General Mode of arrival: ambulatory. Date/Time Provider Initiated Documentation: 10/31/24 20:40. Limitations to Documentation: no limitations. Information obtained by: patient. History of Present Illness 44 year old F presents to the emergency department with the chief complaint of right thigh pain/swelling, described as moderate, Patient started experiencing this day(s) (4) and it has been constant. No relieving factors improve symptom(s), No exacerbating factors reported . Patient notes no other symptoms.. Patient did receive the following treatments prior to arrival, none Related Data Home Medications ?Medication ?Instructions ?Recorded ?Confirmed buprenorphine 8 mg-naloxone 2 mg 2 film sublingual DAILY #2 film 11/23/13 10/31/24 sublingual film (Suboxone) levonorgestrel (Mirena) 1 ea intrauterine q5yr #1 ea 08/26/16 10/31/24 ibuprofen 800 mg tablet 800 mg PO Q8H #30 tabs 08/13/22 10/31/24 dextroamphetamine-amphetamine ER 20 mg PO BID 08/10/24 10/31/24 20 mg 24hr capsule,extend release oxybutynin chloride 10 mg 10 mg PO DAILY 08/10/24 10/31/24 tablet,extended release 24 hr cyclobenzaprine 10 mg tablet 10 mg PO TID 10/31/24 10/31/24 ketorolac 10 mg tablet 10 mg PO Q6H 10/31/24 10/31/24 lidocaine 5 % topical patch 1 patch topical DAILY #30 ea 10/31/24 prednisone 50 mg tablet 50 mg PO DAILY 10/31/24 10/31/24 Previous Rx's ?Medication ?Instructions ?Recorded ibuprofen 800 mg tablet 800 mg PO Q8H #30 tabs 08/13/22 lidocaine 5 % topical patch 1 patch topical DAILY #30 ea 10/31/24 Allergies Allergy/AdvReac Type Severity Reaction Status Date / Time latex Allergy Intermediate Skin Rash Unverified 08/10/24 18:38 Chapstick Allergy Intermediate Swelling/Ed Uncoded 08/10/24 18:38 [facility] General Stated Complaint: GenMedical BRENDA: 4 Review of Systems All systems reviewed & are unremarkable except as noted in HPI and below Constitutional Constitutional: Denies chills and Denies fever(s) Cardiovascular Cardiovascular: Denies chest pain and Denies dyspnea Respiratory Respiratory: Denies cough and Denies dyspnea Gastrointestinal Gastrointestinal: Denies abdominal pain, Denies nausea and Denies vomiting Musculoskeletal Musculoskeletal: Reports other (thigh pain/swelling) Exam Const General: no acute distress Orientation: alert HENMT Head: normal to inspection Ears: external ears normal General nose exam: external nose normal Mouth: moist mucous membranes Eyes General: appearance normal, both eyes and all related structures Neck Neck: normal visual inspection Resp Effort & Inspection: normal respiratory effort and able to speak in complete sentences Cardio Rate: regular rate Neuro General: patient alert and patient oriented x3 Extrem General: full ROM and capillary refill normal Psych Mental Status: mental status grossly normal Course Vital Signs Vital signs: Vital Signs Temperature 36.6 C 10/31/24 20:44 Pulse 107 H 10/31/24 20:44 Respiratory Rate 18 10/31/24 20:44 Blood Pressure 138/91 H 10/31/24 20:44 Pulse Oximetry 97 10/31/24 20:44 Temperature 36.6 C 10/31/24 20:44 Temperature Source Temporal Artery Scan 10/31/24 20:44 Pulse 107 H 10/31/24 20:44 Respiratory Rate 18 10/31/24 20:44 Blood Pressure 138/91 H 10/31/24 20:44 Blood Pressure Position Sitting 10/31/24 20:44 Pulse Oximetry 97 10/31/24 20:44 Oxygen Delivery Method Room Air 10/31/24 20:44 Oxygen Flow Rate 0 10/31/24 20:44 Pain Level 6 10/31/24 20:44 Medical Decision Making 44-year-old female comes in with 4 to 5 days of right thigh discomfort and swelling. She apparently was playing softball last and while running the bases felt a pop in her right thigh. She went to the [place] [facility] and states she spent the night overnight in an MRI of her back and was discharged. She says that she continues to have right thigh pain and swelling and bruising so came here for evaluation. Denies any fevers or chills. She is ambulatory on arrival. She has a area of bruising on the right lateral thigh with what feels like a hematoma. She has full range of motion of her hip and knee. She has intact distal sensation and pulses. I suspect she probably had a strain or sprain of some of her ligaments or muscles in developed a hematoma. Given she has full range of motion of her joints I doubt a complete tendon rupture. Advised these usually resolve with time. She was prescribed ketorolac which I advised she should stop. She will follow-up with her PCP if not improving and return precautions given. Patient feels better after lidocaine patch and compression bandage. She is stable for discharge she will follow-up with her PCP, return precautions given. Differential Diagnosis Differential Diagnosis: Hematoma, contusion PFSH All Active Problems (Updated 10/31/24 @ 21:37 by Nikos Laura MD) Hematoma of right thigh (Acute) Postoperative state (Acute) Status post laparoscopic bilateral salpingectomy 08/04 Low back pain (Acute) Abnormal Pap smear of cervix (Acute) LSIL positive PAP 01/2021. Colpo 02/2021. Needs repeat PAP smear. Colpo with biopsy 03/2022, negative. Repeat Pap smear with HPV testing 03/2023. 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
[2024-10-31] MEDS: Lidocaine 5% Patch 1 PATCH TP (21:25)
[2024-10-31 21:32] VITALS: BP 138/91; PULSE 107; RESP 18; TEMP 36.6; O2SAT 97
== END 2024-10-31 21:46 | disposition home or self-care (01) ==
LOC: ER 22:14
PROVIDERS: Emergency Provider Emergency Medicine; PCP Nurse Practitioner Family
DX: S70.11XA Contusion of right thigh, initial encounter (principal); W21.07XA Struck by softball, initial encounter
CPT/HCPCS: 99283 ×2; 36415

== ENCOUNTER 2024-11-02 16:16 | Outpatient (CLI) | payer BC, SELFPAY ==
[2024-11-02 17:01] LABS: D-Dimer 1078 ng/mlFEU (<500)
== END 2024-11-02 16:17 | disposition home or self-care (01) ==
LOC: LBO 16:16
PROVIDERS: PCP Nurse Practitioner Family; Visit Provider Nurse Practitioner Family
DX: R22.41 Localized swelling, mass and lump, right lower limb (principal)
CPT/HCPCS: 36415; 85379

== ENCOUNTER 2024-11-03 14:06 | Emergency (ER) | payer BC, SELFPAY ==
[2024-11-03 14:15] VITALS: BP 135/91; PULSE 104; RESP 16; TEMP 36.6; O2SAT 97
--- NOTE | 2024-11-03 15:00 | DI.MRI_ITS ---
Exam(s) MR LOWER EXTREMITY RT WO EXAM: MR LOWER EXTREMITY RT WO CLINICAL HISTORY: R. inner thigh/buttock hematoma, eval muscle tear TECHNIQUE: Multiplanar multisequence MRI was performed. COMPARISON: Recent imaging studies were reviewed. FINDINGS: MARROW:There is no evidence of fracture, bone contusion, nor avascular necrosis of the hip and femur.. Mild amount of increased joint fluid in the hip but probably upper normal physiologic limits. There are no significant osseous lesions. MUSCLES: There is full-thickness tear of the common hamstrings tendon off of the ischial tuberosity with some retraction of the tendon intramuscular fluid signal around the torn muscles, this signal abnormality extending down the hamstring muscle planes to the mid-level of the posterior thigh. There is no fracture of the ischial tuberosity. The distal most aspect of the hamstring muscle group are intact. EXTRAMUSCULAR SOFT TISSUES: Fluid-blood is seen extending caudally around the affected musculature, most prominent around the semimembranosus. OTHER: None. IMPRESSION: 1. High-grade full-thickness tear of the hamstrings tendon at the level the ischial tuberosity with some retraction and descending sally muscular fluid signal. The attachment of the hamstrings at the knee level appear intact 2. There is no avulsion fracture of the ischial tuberosity Report called by myself to the ER our provider 11/03/2024 at 4:40 pm. DATA REPOSITORY:
--- NOTE | 2024-11-03 15:02 | W.ED.GENAD ---
Discharge Plan Disposition Patient Disposition: Home Condition: Stable Discharge Details Clinical Impression: Complete rupture of right proximal hamstring tendon Primary Care Provider: Cyndie Evans ED Provider: Shaniqua Ro Home Meds and New Rx's Prescriptions: Continued cyclobenzaprine 10 mg tablet 10 mg PO TID Qty: 10 0RF No Action buprenorphine-naloxone [Suboxone] 1 EACH film 2 film Sublingual DAILY Qty: 2 Patient Comments: Mirena 1 EACH intrauterine device 1 ea Intrauterine q5yr Qty: 1 ibuprofen 800 mg tablet 800 mg PO Q8H Qty: 30 1RF oxybutynin chloride 10 mg tablet extended release 24hr 10 mg PO DAILY Patient Comments: TAKE ONE TABLET BY MOUTH EVERY DAY dextroamphetamine-amphetamine 20 mg capsule,extended release 24hr 20 mg PO BID Patient Comments: TAKE ONE CAPSULE BY MOUTH TWICE A DAY FOR INATTENTION ketorolac 10 mg tablet 10 mg PO Q6H Patient Comments: TAKE 1 TABLET BY MOUTH FOUR TIMES A DAY NEEDED FOR PAIN, NOT TO EXCEED 4 TABLETS/ DAY AND 5 DAYS DURATION FOR ALL DOSE FORMS lidocaine 5 % adhesive patch,medicated 1 patch topical DAILY Qty: 30 0RF Rx Instructions: leave on most painful area for up to 12 hrs Discharge Instructions Instructions: Hamstring injury Additional Instructions: You were seen in the emergency department today for evaluation of ongoing pain and bruising in your right thigh after a softball injury, and had an MRI that showed a complete tear of your right hamstring muscle. In our department you had a full physical examination performed, received medications for management of pain, and I discussed your case with the orthopedic doctor who is going to repair this injury next week. Until that time you need to use crutches and do not put weight on that leg. I have provided you with a refill of your Flexeril, and your primary care provider changed the regimen of your Suboxone to manage pain more effectively. Please use therapeutic dosing of Tylenol (acetaminophen) & Advil (ibuprofen) in an alternating fashion as follows: Take 1000mg of Tylenol every 6 hours without missing doses- that is 4 times per day. Long Term in between the Tylenol doses, take 600mg of Advil also on a 6 hour schedule, that is also 4 times per day. With this strategy, you will be taking something for fever/pain as often as every 3 hours. The daily maximum dosing of Tylenol is 4000mg, and the daily maximum dosing of Advil is 2400mg. Please note that some common cold medications & prescription pain medications may contain acetaminophen and you need to read OTC drug labels and factor that in to maximum daily doses. Please follow-up with your primary care provider in the next few days to discuss this visit and any symptoms that change, worsen, or persist. Thank you for allowing us to be part of your care. Stand Alone Forms: Work Release Referrals: Shine Schneider MD [ [facility] STAFF PHYSICIAN, Orthopaedic Surgical] - 3 days HPI General Mode of arrival: ambulatory. Date/Time Provider Initiated Documentation: 11/03/24 14:09. Limitations to Documentation: no limitations. Information obtained by: patient, family and old records reviewed. HPI Narrative: This is a 44-year-old female patient presenting for reevaluation of ongoing right proximal thigh pain and bruising. 1 week ago today (last ) the patient was playing softball and felt a pop in her right thigh while running. She has had numerous ER visits, including a visit to the [facility] where she reports she had an MRI of her back, and an ED visit here where she had an exam concerning for hematoma. She had an outpatient provider examination with laboratory studies including an elevated D-dimer, and had a DVT ultrasound and CT PE performed that were negative for thromboembolic disease. She returns today for reevaluation given her ongoing pain and difficulty with ambulating. The patient has not sustained recurrent or additional trauma, her outpatient provider increased her dosing of Suboxone to meet pain management levels, and she has been using the prescribed Toradol and Flexeril. She reports no new numbness or tingling in her leg, states that her bruising and swelling has worsened. Related Data Home Medications ?Medication ?Instructions ?Recorded ?Confirmed buprenorphine 8 mg-naloxone 2 mg 2 film sublingual DAILY #2 film 11/23/13 11/03/24 sublingual film (Suboxone) levonorgestrel (Mirena) 1 ea intrauterine q5yr #1 ea 08/26/16 11/03/24 ibuprofen 800 mg tablet 800 mg PO Q8H #30 tabs 08/13/22 11/03/24 dextroamphetamine-amphetamine ER 20 mg PO BID 08/10/24 11/03/24 20 mg 24hr capsule,extend release oxybutynin chloride 10 mg 10 mg PO DAILY 08/10/24 11/03/24 tablet,extended release 24 hr ketorolac 10 mg tablet 10 mg PO Q6H 10/31/24 11/03/24 lidocaine 5 % topical patch 1 patch topical DAILY #30 ea 10/31/24 11/03/24 cyclobenzaprine 10 mg tablet 10 mg PO TID #10 tabs 11/03/24 Previous Rx's ?Medication ?Instructions ?Recorded ibuprofen 800 mg tablet 800 mg PO Q8H #30 tabs 08/13/22 lidocaine 5 % topical patch 1 patch topical DAILY #30 ea 10/31/24 cyclobenzaprine 10 mg tablet 10 mg PO TID #10 tabs 11/03/24 Allergies Allergy/AdvReac Type Severity Reaction Status Date / Time latex Allergy Intermediate Skin Rash Unverified 11/03/24 17:03 Chapstick Allergy Intermediate Swelling/Ed Uncoded 11/03/24 17:03 mikey General Stated Complaint: Orthopedic BRENDA: 3 Exam Narrative Exam Narrative: Gen: Awake and alert, in no apparent distress HEENT: Non-icteric sclera Neck: Supple Lungs: No apparent respiratory distress, normal respiratory effort. CV: Appears well perfused, strong distal pulses Abdomen: Non-distended, soft MSK: Moves 4 extremities without apparent limitation in ROM with the exception of the right lower extremity, which is painful to motion and has a palpable swelling of the posterior proximal to mid thigh. She has extensive ecchymosis with no warmth or induration. Strong DP pulses, preserved sensation distal to the injury. Skin: Visualized skin without rashes, cyanosis. Neuro: Antalgic gait, no obvious focal deficits or facial asymmetry. Speaks in full, clear sentences. Psych: Appropriate for situation. Course Vital Signs Vital signs: Vital Signs Temperature 36.6 C 11/03/24 14:15 Pulse 104 H 11/03/24 14:15 Respiratory Rate 16 11/03/24 14:15 Blood Pressure 135/91 H 11/03/24 14:15 Pulse Oximetry 97 11/03/24 14:15 Temperature 36.6 C 11/03/24 14:15 Temperature Source Skin 11/03/24 14:15 Pulse 104 H 11/03/24 14:15 Respiratory Rate 16 11/03/24 14:15 Blood Pressure 135/91 H 11/03/24 14:15 Blood Pressure Position Sitting 11/03/24 14:15 Pulse Oximetry 97 11/03/24 14:15 Oxygen Delivery Method Room Air 11/03/24 14:15 Oxygen Flow Rate 0 11/03/24 14:15 Pain Level 8 11/03/24 14:15 Medical Decision Making This is a 44-year-old female patient presented for reevaluation of her right lower extremity. My differential includes but is not limited to muscle strain or strain, including tear. Consider fracture or dislocation though this is less likely in this patient who has been able to ambulate. DVT and thromboembolic disease were appropriately ruled out in the outpatient environment. Certainly considered hematoma, the patient does not have any blood thinner use and does not have hemodynamic instability to suggest active extravasation. She did not have any anemia on her outpatient labs today. No evidence for arterial occlusion on this patient's physical examination today. We discussed the patient's evaluation and our concerns with the radiologist, who recommends MRI without contrast of the lower extremity to evaluate for muscle rupture/tear. I will provide the patient with a dose of Tylenol, Toradol, and Flexeril. - I discussed the results of the MRI with the radiologist, who notes a complete rupture of the proximal tendon of the hamstrings. I discussed this finding with orthopedics Dr. Schneider, who recommends operative intervention early next week, requested an x-ray of the hip and pelvis, which was performed. The patient endorses a migraine headache typical of her migraines with no new vision changes, neurodeficits, or significant nausea. She will be provided with Reglan and Benadryl to round out the migraine cocktail. I also provided her with 4 mg of Suboxone as that is what she is due for based on her home regimen. The patient was provided with crutches and made while nonweightbearing and had improvement in her leg pain after the above-noted interventions. She will follow-up with orthopedics early next week and understands the plan and return precautions. At this time, the patient has had a full medical evaluation and is safe for discharge to home. They are hemodynamically stable, ambulatory, and tolerating PO. They are understanding of the follow-up plan and return precautions. They left our facility without incident. Sahniqua Ro MD [facility] All Active Problems (Updated 11/03/24 @ 18:11 by Shaniqua Ro MD) Complete rupture of right proximal hamstring tendon (Acute) Hematoma of right thigh (Acute) Postoperative state (Acute) Status post laparoscopic bilateral salpingectomy 08/04 Low back pain (Acute) Abnormal Pap smear of cervix (Acute) LSIL positive PAP 01/2021. Colpo 02/2021. Needs repeat PAP smear. Colpo with biopsy 03/2022, negative. Repeat Pap smear with HPV testing 03/2023. 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
[2024-11-03] MEDS: Ketorolac 15 MG/ML VIAL IVP (15:03)
[2024-11-03] MEDS: Ondansetron 4 MG/2 ML VIAL IVP (15:03)
[2024-11-03] MEDS: Cyclobenzaprine 10 MG TAB PO (15:04)
--- NOTE | 2024-11-03 17:21 | DI.RAD_ITS ---
Exam(s) XR HIP RT COMPLETE AP PELVIS EXAM: XR HIP RT COMPLETE AP PELVIS CLINICAL HISTORY: hamstring rupture, surgical planning. TECHNIQUE: 2D digital imaging was performed. Two views COMPARISON: No exams were available for comparison FINDINGS: BONES: No acute fracture is present. No bony destructive lesion is seen. JOINTS: No dislocation present. The joint spaces are maintained. There is mild bilateral acetabular spurring superiorly. The SI joints and pubic symphysis are unremarkable. SOFT TISSUE: There is contrast in the urinary bladder related to prior CT. An IUD is noted. IMPRESSION: No acute abnormality. DATA REPOSITORY: RADIATION DOSE DELIVERED:
[2024-11-03] MEDS: diphenhydrAMINE 50 MG/ML VIAL 25 MG IVP (17:43)
[2024-11-03] MEDS: Metoclopramide 10 MG/2 ML VIAL IVP (17:43)
[2024-11-03] MEDS: Buprenorphine/Naloxone 4 mg/1 mg FILM 1 EACH SL (18:20)
[2024-11-03] MEDS: Cyclobenzaprine 10 MG TAB, 3 TABS/BTL PO (18:20)
[2024-11-03 18:29] VITALS: BP 129/76; PULSE 98; RESP 16; O2SAT 99
== END 2024-11-03 18:30 | disposition home or self-care (01) ==
PROVIDERS: Emergency Provider Emergency Medicine; PCP Nurse Practitioner Family
DX: S76.311A Strain of muscle, fascia and tendon of the posterior muscle group at thigh level, right thigh, initial encounter (principal); X58.XXXA Exposure to other specified factors, initial encounter; Y93.69 Activity, other involving other sports and athletics played as a team or group
CPT/HCPCS: 96374; 96375; 99284; 73502; 73718; J1200; J1885; J2405; J2765

== ENCOUNTER 2024-11-03 18:57 | Outpatient (CLI) | payer BC, SELFPAY ==
--- NOTE | 2024-11-03 | DI.CT_ITS ---
Exam(s) CT CHEST PE CTA EXAM: CT CHEST PE CTA CLINICAL HISTORY: ELEVATED D DIMER, R79.89, ABNL FINDINGS BLOOD CHEMISTRY. TECHNIQUE: Imaging Protocol: CT angiography of the chest was performed using pulmonary embolus protocol. Multi planar reconstructions were performed. CONTRAST MATERIAL: Intravenous: Omnipaque 350 Contrast volume: 83 cc COMPARISON: No exams were available for comparison FINDINGS: CHEST: PULMONARY ARTERIES: There are no intraluminal filling defects in the pulmonary artery tree to suggest the presence of acute pulmonary emboli LUNGS: There are no infiltrates nor evidence of pulmonary infarction.. There are no pleural effusions. MEDIASTINUM: There is no hilar nor mediastinal adenopathy. CARDIAC: Heart size is upper normal. There is no pericardial effusion.Caliber of the thoracic aorta is within normal limits. No evidence of aortic dissection. There is no significant shift of the interventricular septum. PARTIALLY VISUALIZED UPPERMOST ABDOMEN: There is no contrast reflux into the intrahepatic IVC. Gallbladder is noted to be surgically absent. OSSEOUS: No significant osseous lesions.No fractures.. IMPRESSION: 1. No evidence of acute pulmonary emboli. No evidence of pulmonary infarction.No confluent infiltrate, ominous pulmonary nodules, nor pleural effusions. 2. No evidence of aortic dissection nor pericardial effusion. RADIATION DOSE DELIVERED: 129.66mGy.cm Total DLP DATA REPOSITORY: All CT scans at this facility are submitted to the National Radiology Data Registry (NRDR) Dose Index Registry (DIR) with the [employer] (ACR). RADIATION OPTIMIZATION: All CT scans at this facility use at least one of these dose optimization techniques: automated exposure control; mA and/or kV adjustment per patient size (includes targeted exams where dose is matched to clinical indication); or iterative reconstruction.
[2024-11-03] MEDS: Normal Saline - Diluent 50 ML VIAL IJ (13:07)
[2024-11-03] MEDS: Normal Saline Flush 10 ML SYR IVP (13:07)
[2024-11-03] MEDS: Omnipaque 350 MG/ML 500 ML BTL-Imaging package IJ (13:08)
== END 2024-11-03 19:17 ==
LOC: DI 18:57
PROVIDERS: PCP Nurse Practitioner Family; Visit Provider Nurse Practitioner Family
DX: R79.89 Other specified abnormal findings of blood chemistry (principal)
CPT/HCPCS: 71275

== ENCOUNTER 2024-11-03 19:20 | Outpatient (CLI) | payer BC, SELFPAY ==
--- NOTE | 2024-11-03 | DI.US_ITS ---
Exam(s) US LOWER EXTREMITY VENOUS RT EXAM: US LOWER EXTREMITY VENOUS RT CLINICAL HISTORY: LOCALIZED SWELLING LOWER LEG RIGHT, R22.41 TECHNIQUE: Grayscale, color, and doppler imaging of the deep venous system of the right lower extremity was performed. COMPARISON: US US PELVIS RENAL from 05/07/2022 FINDINGS: There is no evidence of intraluminal thrombus and there is normal compression and augmentation demonstrated within the common femoral vein, femoral vein, and popliteal vein. In the ipsilateral calf the interrogated veins also exhibit normal compression/ augmentation properties. The ipsilateral saphenofemoral junction is patent. IMPRESSION: 1. No evidence of DVT in the right lower extremity. DATA REPOSITORY:
[2024-11-03 11:59] LABS: Abs Immature Grans 0.15 10^3/uL (0.0-0.06); HCT 36.1 % (36.0-46.0); HGB 11.5 g/dL (11.2-15.7); Immature Grans % 1.1 %; MCH 28.4 pg (27.0-33.0); MCHC 31.9 % (32.0-36.0); MCV 89 fL (80-95); MPV 8.8 fL (8.0-11.0); Platelet Count 280 10^3/uL (130-400); RBC 4.05 10^6/uL (3.93-5.22); RDW 12.6 % (11.7-14.6); RDW-SD 41.5 fL; WBC 14.14 10^3/uL (4.4-10.8)
[2024-11-03 12:35] LABS: INR 0.9 (0.9-1.1); Prothrombin Time 9.3 sec (9.1-11.1)
[2024-11-03 12:44] LABS: ALT 89 U/L (14-59); AST 26 U/L (15-37); Albumin 3.6 g/dL (3.4-5.0); Alkaline Phosphatase 90 U/L (46-116); Anion Gap 7.9 mmol/L (3-11); BUN 22 mg/dL (7-18); Bilirubin, Total 0.5 mg/dL (0.2-1.0); CO2 29.1 mmol/L (21.0-32.0); Calcium 8.7 mg/dL (8.5-10.1); Chloride 105 mmol/L (98-107); Estimated GFR 114.15 (mL/min/1.73m2); Glucose 85 mg/dL (74-106); Potassium 3.9 mmol/L (3.5-5.1); Sodium 142 mmol/L (136-145); Total Protein 7.1 g/dL (6.4-8.2); Vitamin B12 288 pg/mL (193-986)
[2024-11-05 23:43] LABS: B. miyamotoi PCR Negative (Negative); Babesia divergens/MO-1 Negative (Negative); Ehrlichia muris eauclairensis Negative (Negative)
[2024-11-06 10:30] LABS: Lyme Ab w Rflx to Lyme Confirm Negative (Negative)
[2024-11-06 14:33] LABS: Coag FactorVIII Activity Assay 319 % (55 - 200)
== END 2024-11-03 19:40 ==
LOC: DI 19:20
PROVIDERS: PCP Nurse Practitioner Family; Visit Provider Nurse Practitioner Family
DX: R22.41 Localized swelling, mass and lump, right lower limb (principal); T14.90XA Injury, unspecified, initial encounter; X58.XXXA Exposure to other specified factors, initial encounter
CPT/HCPCS: 80053; 85240; 85246; 85390; 85397; 87798; 82607; 85025; 85250; 85270; 85610; 85730; 86618; 93971

== ENCOUNTER 2024-11-07 02:15 | Outpatient (CLI) | payer BC, SELFPAY ==
--- NOTE | 2024-11-07 12:44 | DI.MAMMO_ITS ---
Exam(s) MAMMO SCREENING EXAM: MAMMO SCREENING CLINICAL HISTORY: screening Z12.31 TECHNIQUE: Bilateral full field digital CC and MLO mammographic images were obtained with 3D tomosynthesis and utilizing computer aided detection (CAD). COMPARISON: Comparison is made with prior examinations. FINDINGS: Masses/Architectural Distortion: There is a new 8 mm nodule in the medial right breast on the craniocaudad view 11.7 cm from the nipple. Microcalcifications: No suspicious pleomorphic-type are seen. Skin Thickening/Nipple Retraction: None. IMPRESSION: 1. New 8 mm nodule in the medial right breast on the craniocaudad view. 2. This area should be further evaluated with a spot compression view. Ultrasound may be indicated at that time. BI-RADS Category 0 - Incomplete: Need additional imaging evaluation Breast Density - Category C - The breast are heterogeneously dense, which may obscure small masses. Breast density Category C or D implies that the patient has dense breast tissue. Dense breast tissue can make it harder to find cancer on a mammogram. Dense breast tissue is also associated with an increased risk of breast cancer. This information about the result of the mammogram report was provided to the patient to raise their awareness. Use this report when you speak with the patient about their risks for breast cancer, which includes their family history. At that time, you may recommend additional screening tests (Ultrasound or MRI) as these tests may add significant information. A negative radiographic report should not delay biopsy if a dominant or clinically suspicious mass is present. Up to ten percent of cancers are not identified on mammography. A negative report may reinforce clinical impression. Adenosis and dense breasts may obscure an underlying neoplasm. False positive reports average 6 to 10%. Patient will receive a letter notifying them of these results.
== END 2024-11-07 02:35 ==
LOC: DI 02:15
PROVIDERS: PCP Nurse Practitioner Family; Visit Provider Nurse Practitioner Family
DX: Z12.31 Encounter for screening mammogram for malignant neoplasm of breast (principal); R92.333 Mammographic heterogeneous density, bilateral breasts
CPT/HCPCS: 77063; 77067

== ENCOUNTER 2024-11-09 08:56 | Day surgery (SDC) | payer BC, SELFPAY ==
[2024-11-09] VITALS (42 sets, daily range): BP systolic 84–122; BP diastolic 47–82; PULSE 73–105; RESP 8–27; TEMP 36.2–36.7; O2SAT 96–100; BMI 30.5
--- NOTE | 2024-11-09 07:14 | W.PM.DSUDISC ---
Date of service: 11/09/24 Discharge Plan Disposition Patient Disposition: Home Condition: Stable Discharge Details Attending Provider: Shine Schneider Primary Care Provider: Cyndie Evans Home Meds and New Rx's Prescriptions: New naproxen 250 mg tablet 250 - 500 mg PO BID PRN (Reason: Moderate pain) Qty: 40 0RF aspirin 81 mg tablet,delayed release (DR/EC) 81 mg PO DAILY 30 Days Qty: 30 0RF oxycodone 5 mg tablet 5 - 10 mg PO Q4H PRN (Reason: Moderate to severe pain) Qty: 18 0RF Continued buprenorphine-naloxone [Suboxone] 1 EACH film 2 film Sublingual DAILY Qty: 2 Patient Comments: Mirena 1 EACH intrauterine device 1 ea Intrauterine q5yr Qty: 1 ibuprofen 800 mg tablet 800 mg PO Q8H Qty: 30 1RF oxybutynin chloride 10 mg tablet extended release 24hr 10 mg PO DAILY Patient Comments: TAKE ONE TABLET BY MOUTH EVERY DAY dextroamphetamine-amphetamine 20 mg capsule,extended release 24hr 20 mg PO BID Patient Comments: 25mg a.m./20mg p.m TAKE ONE CAPSULE BY MOUTH TWICE A DAY FOR INATTENTION cyclobenzaprine 10 mg tablet 10 mg PO TID Qty: 10 0RF Discharge Instructions Additional Instructions: Surgery: Right proximal hamstring repair 11/09/2024 Activity: Protected weightbearing with crutches for 6-8 weeks. Avoid any hip flexion past 90 degrees. Avoid any knee extension while hip is flexed. Minimal/gentle ACTIVE hip extension and knee flexion for 6 weeks. After 6 weeks, start active hip and knee range of motion- avoid deep hip flexion and avoid hip flexion combined with knee extension. After 8 weeks, gently advance to full range of motion After 10 weeks, start isometric strengthening with knee flexed 60+ degrees After 12 weeks, start concentric and closed?chain strengthening. After 3 months, may start gentle spin/bike After 4 months, may start open?chain activities like jogging A physical therapy prescription will be sent electronically to begin in about 4-6 weeks. Resume buprenorphine-naloxone (Suboxone) as prescribed Prescriptions: Aspirin 81 mg take 1 daily to prevent a blood clot for 30 days Naproxen 250 mg take 1-2 every 12 hours with a meal as needed for moderate pain Oxycodone 5 mg take 1-2 every 4-6 hours as needed for severe pain (please contact your primary care provider for any additional pain medication assistance) You may use [id number] Tylenol (acetaminophen) as needed for mild pain. These pain medications may be taken all at once or in different combinations as needed. Also, recommend Colace (docusate) as a stool softener as surgery and pain medicine cause constipation. You may try pyeg-rdy-sjejdnz diphenhydramine (Benadryl) 25-50 mg nightly as a sleep aid Dressings: Leave dressing in place until follow-up. Keep clean and dry at all times. Follow-up: 10-[address] Schneider You may take off the leg compression stockings this evening at home. You may also leave them on a few days longer if you have a history of leg swelling or edema. Let us know right away if you develop any redness, drainage, fevers, chest pain, or trouble breathing. Do not drink alcohol or drive for at least 24 hours after anesthesia. Please call the office during business hours with any questions or concerns. Stand Alone Forms: Anesthesia Discharge Inst., Crutch Training Instructions, Edi Pickett (DSU) Referrals: Shine Schneider MD [ [facility] STAFF PHYSICIAN, Orthopaedic Surgical] - 11/21/24 8:00 am Discharge Orders Discharge Orders: Discharge Order (Routine); Ordered 11/09/24 Ordered By: Omar Rodriguez DS: Diagnosis Discharge Diagnosis (1) Complete rupture of right proximal hamstring tendon: Status: Acute
--- NOTE | 2024-11-09 07:16 | W.PM.OP ---
Operative Note Operative Note PRE-OP DIAGNOSIS: Complete retracted right hamstring rupture POST-OP DIAGNOSIS: same PROCEDURE: Right proximal hamstring repair, CPT #20207 SURGEON: Shine Schneider FOREIGN BANKNOTE TELLER TRADER: Omar Rodriguez ANESTHESIA TYPE: Local By Surgeon and General LMA/ETT Refer to Anesthesia Record Patient was transported to: PACU Patient's condition: stable Implants: Arthrex 4 x 4.75 mm bio composite SwiveLock anchors Indications: Please see complete medical record for details. Findings: Complete retracted proximal hamstring rupture Procedure Description: In the operating room, general anesthesia was induced. The patient was positioned prone on the operating room table. All bony prominences were well-padded. Preoperative antibiotics were administered. The posterior proximal right thigh was prepped and draped. The correct patient, procedure, and side of the procedure were all verified prior to incision. The proximal hamstring origin on the ischial tuberosity was palpated and marked. It was preinjected with 30 cc of 0.25% bupivacaine containing epinephrine. The gluteal crease was used to hide the incision and a transverse incision made. Blunt dissection was used to expose the gluteal fascia which was sharply divided. There were no notable cutaneous nerve branches encountered. Deep blunt dissection was used to localize the the proximal hamstring origin on the ischium with retraction of the gluteal musculature proximally and laterally. The hamstring bursa was then opened and the hematoma evacuated. The complete retracted hamstring tendons were palpated more distally in the posterior thigh and the sciatic nerve laterally. There was some flattening and bruising about the sciatic nerve, but it was otherwise not kinked, scarred, or trapped in the injury. Careful blunt dissection was used to break up early adhesions and [place] clamps used to establish appropriate excursion on the hamstring tendons, with the somewhat muscle heads appropriately able to be reduced together nicely to the mostly bald origin. Smooth Hohmann was maintained gently between the proximal hamstrings and the sciatic nerve more laterally for protection. The origin repair site was then optimized for bone tendon healing abrading the surface and removing soft tissue. Spiked glenoid retractors were then placed around the proximal and lateral ischium and another Hohmann more proximally medially. The SwiveLock drill was used for the distal row followed by the tap and placement of two 4.7 mm bio composite SwiveLock anchors preloaded with FiberTape. The FiberTape pairs were then shuttled through the appropriate level of the hamstring tendons based on the reduction and footprint coverage while also incorporating the separate layers. Provisional traction on these tails confirmed excellent footprint coverage, tissue hold, and reduction. The more proximal row was then drilled, tapped, and the knotless speed bridge repair completed with 1 FiberTape from each of the distal row anchors loaded on the proximal row anchors, each anchor provisionally placed into the socket confirming reduction before each anchor was then finally seton tightened. Care was taken ensure all anchors were flushed to countersunk in the bone to avoid prominence. The repair had excellent tissue coverage and strength. The FiberTape tails were cut. Last sciatic nerve remained lateral to repair, unkinked, and uninvolved. The wound was copiously irrigated normal saline. The gluteal fascia was closed using 0 Vicryl buried interrupted. Subcutaneous tissue was irrigated and then closed with 2-0 Monocryl buried erupted. An additional 30 cc of 0.25% bupivacaine containing epinephrine was infiltrated about the surgery site for postoperative pain control. Skin was closing 3-0 Monocryl subcuticular running. Skin glue applied over the incision followed by Mastisol to secure a Mepilex bandage. Date of Procedure: 11/09/24
[2024-11-09] MEDS: Lactated Ringers 1,000 ML 30 ML IV (10:10)
--- NOTE | 2024-11-09 10:34 | W.ANESPRE ---
General Info Date of Service Date Performed: 11/09/24 Height: 5 ft 6 in Weight: 85.8 kg Body Mass Index (BMI): 30.5 Surgical Procedure: Operation Date: 11/09/24 10:10 Proposed Procedure Side Surgeon p Proximal Hamstring Repair Right Shine Schneider MD Actual Procedure Side Surgeon p Proximal Hamstring Repair Right Shine Schneider MD Meds Allergies and Home Medications Allergies Allergy/AdvReac Type Severity Reaction Status Date / Time latex Allergy Intermediate Skin Rash Verified 11/09/24 09:24 Chapstick Allergy Intermediate Swelling/Ed Uncoded 11/09/24 09:24 mikey Home Medication ?Medication ?Instructions ?Recorded buprenorphine 8 mg-naloxone 2 mg 2 film sublingual DAILY #2 film 11/23/13 sublingual film (Suboxone) levonorgestrel (Mirena) 1 ea intrauterine q5yr #1 ea 08/26/16 ibuprofen 800 mg tablet 800 mg PO Q8H #30 tabs 08/13/22 dextroamphetamine-amphetamine ER 20 mg PO BID 08/10/24 20 mg 24hr capsule,extend release oxybutynin chloride 10 mg 10 mg PO DAILY 08/10/24 tablet,extended release 24 hr cyclobenzaprine 10 mg tablet 10 mg PO TID #10 tabs 11/03/24 aspirin 81 mg tablet,delayed 81 mg PO DAILY Prevent blood clot 11/09/24 release 30 days #30 tabs naproxen 250 mg tablet 250 - 500 mg (1 - 2 x 250 mg) PO 11/09/24 BID PRN Moderate pain #40 tabs oxycodone 5 mg tablet 5 - 10 mg (1 - 2 x 5 mg) PO Q4H 11/09/24 PRN Moderate to severe pain #18 tabs Current Visit Medications: Current Medications Generic Name Dose Route Start Last Admin Trade Name Freq PRN Reason Stop Dose Admin Ringer's Solution 1,000 mls @ 30 mls/hr 11/09/24 06:00 11/09/24 10:10 IV 11/09/24 23:59 30 mls/hr INFUSION ALLISON Administration Cefazolin Sodium/Dextrose 2 gm in 50 mls @ 100 mls/hr 11/09/24 06:00 Ancef Duplex IVPB 11/09/24 23:59 PREOP ALLISON Tranexamic Acid/Sodium Chloride 1,000 mg in 100 mls @ 600 mls/hr 11/09/24 06:00 IVPB 11/09/24 23:59 PREOP ALLISON IV Miscellaneous Supplies 1 each 11/09/24 06:00 Iv Access IV 11/09/24 23:59 DIRECTED ALLISON Oxycodone HCl 0 mg 11/09/24 07:14 Oxycodone 5 Mg Tab PO 12/09/24 07:13 Q3H PRN PRN Pain Sodium Chloride 0 ml 11/09/24 06:00 Normal Saline Flush 10 Ml Syr IV 11/09/24 23:59 PRN PRN Sodium Chloride 0 ml 11/09/24 06:00 Normal Saline 10 Ml Vial IJ 11/09/24 23:59 DIRECTED PRN Sterile Water 0 ml 11/09/24 06:00 Water,Injection,Sterile 10 Ml Vial IJ 11/09/24 23:59 DIRECTED PRN PFSH Active Problems Active Problems: Problem Status Onset Code Complete rupture of right proximal hamstring tendon Acute S76.311A Hematoma of right thigh Acute S70.11XA Postoperative state Acute Z98.890 Encounter for counseling regarding contraception Acute Z30.09 Abnormal Pap smear of cervix Acute R87.619 Low back pain Acute M54.50 Medical History Medical History HPV (human papilloma virus) anogenital infection 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/15) ASCUS/HPV+, benign colp 2018 LSIL/HPV+, colp 2020 Lyme disease Fatigue Migraine Pelvic pain Attention deficit disorder (ADD) in adult Herpes labialis Opioid dependence Depression Situational anxiety Medical History Comments:: gets emotional with anesthesia - cries Surgical History Surgical History S/P rotator cuff repair Cholecystectomy (07/15/16) Tobacco Smoking/Tobacco Use Status: Never Passive smoking exposure: No Alcohol Alcohol Intake: never Substance Use Substance use: Current Sobriety Vital Signs and Lab Results Vital Signs Most Recent Vital Signs in EMR: Most Recent Vital Signs Temp Pulse Resp BP Pulse Ox 36.6 C 95 H 16 103/82 98 11/09/24 09:05 11/09/24 09:05 11/09/24 09:05 11/09/24 09:05 11/09/24 09:05 Point of Care Results Point of Care Results: POC- Test(urine) Negative 11/09/24 09:53 Lab Results Complete Blood Count: WBC, (4.4-10.8) 14.14 10^3/uL H 11/03/24, 11:41 RBC, (3.93-5.22) 4.05 10^6/uL 11/03/24, 11:41 Hgb, (11.2-15.7) 11.5 g/dL 11/03/24, 11:41 Hct, (36.0-46.0) 36.1 % 11/03/24, 11:41 Plt Count, (130-400) 280 10^3/uL 11/03/24, 11:41 Complete Metabolic Panel: Sodium, (136-145) 142 mmol/L 11/03/24, 11:41 Potassium, (3.5-5.1) 3.9 mmol/L 11/03/24, 11:41 Chloride, (98-107) 105 mmol/L 11/03/24, 11:41 Carbon Dioxide, (21.0-32.0) 29.1 mmol/L 11/03/24, 11:41 BUN, (7-18) 22 mg/dL H 11/03/24, 11:41 Creatinine, (0.55-1.02) 0.6 mg/dL 11/03/24, 11:41 Est GFR (CKD-EPI 2020), (mL/min/1.73m2) 114.15 11/03/24, 11:41 Calcium, (8.5-10.1) 8.7 mg/dL 11/03/24, 11:41 Albumin, (3.4-5.0) 3.6 g/dL 11/03/24, 11:41 Glucose, (74-106) 85 mg/dL 11/03/24, 11:41 Liver Function Panel: ALT, (14-59) 89 U/L H 11/03/24, 11:41 AST, (15-37) 26 U/L 11/03/24, 11:41 Coagulation Panel: INR, (0.9-1.1) 0.9 11/03/24, 11:41 PT, (9.1-11.1) 9.3 sec 11/03/24, 11:41 APTT, (20.6-30.2) sec 11/03/24, 11:41 D-Dimer, (<500) 1078 ng/mlFEU H 11/02/24, 16:19 Anesthesia Assessment and Plan Anesthesia History Personal History: No History of Anesthesia Complications Family History: No Family History of Anesthesia Complications Exercise Tolerance Exercise Tolerance: Metabolic Equivalents>4 Pertinent Negatives Pertinent Negatives: No Symptoms of GERD, No Major Cardiovascular Symptoms or Complaints, No Major Pulmonary Symptoms or Complaints and No History of CVA/TIA Cardiac & Pulmonary Exam Cardiac Exam: Normal S1/S2 Heart Sounds Pulmonary Exam: Clear Bilateral Breath Sounds Implantable Cardiac Device Does patient have a Pacemaker or an ICD?: No Airway Exam Known Difficult Airway: No Mallampati Class: 2 Mouth Opening: Normal (> 3cm) Thyromental Distance: Greater than 3 cm Neck Range of Motion: Full ROM Neck Circumference: Normal Teeth Condition: Normal Dentition Tooth Numbering:  1. broken ASA Classification ASA Score: ASA 2 Emergency Case?: No NPO Status NPO Status: NPO Clears >2 hours, Solids >8 hours Status Status: Negative HCG Anesthesia Plan Resuscitation Status: Full Code Anesthesia Technique: General Anesthesia Airway Planned: Endotracheal Tube Monitors Used: Standard Monitors
[2024-11-09] MEDS: ceFAZolin 2 GM/50 ML BAG IVPB (10:36)
[2024-11-09] MEDS: TRANEXAMIC ACID/SOD. CHL. 1,000 MG/100 ML BAG 600 MG IVPB (11:07)
[2024-11-09] MEDS: Bupivacaine 0.25% Pres-Free W/EPI 30 ML VIAL ×2 (11:25→12:45)
[2024-11-09] MEDS: ePHEDrine 25 MG/5 ML Syringe IVP (13:19)
[2024-11-09] MEDS: HYDROmorphone 2 MG/ML SYR IVP ×5 (13:36→14:16)
[2024-11-09] MEDS: fentaNYL 100 MCG/2 ML VIAL IVP (14:21)
[2024-11-09] MEDS: Ketorolac 30 MG/ML VIAL IVP (14:31)
--- NOTE | 2024-11-09 14:53 | W.ANESPOSTOP ---
Postoperative Evaluation Date, Time and Location Date Performed: 11/09/24 Time Performed: 14:53 Patient Location: PACU Vital Signs Most Recent Imported Vital Signs: Most Recent Vital Signs Temp Pulse Resp BP Pulse Ox 36.7 C 81 12 117/74 99 11/09/24 14:46 11/09/24 14:46 11/09/24 14:46 11/09/24 14:46 11/09/24 14:46 Pain Score Most Recent Pain Score: Most Recent Pain Score Pain Level 5 11/09/24 14:44 Assessment Mental Status: Awake (Alert & Oriented to Patient Baseline) Airway and Respiratory Function: Patent airway with normal (patient baseline) respiratory exam Cardiovascular Function: Hemodynamically Stable Hydration Status: Adequately Hydrated Nausea & Vomiting: No Nausea or Vomiting Pain: Pain is tolerable per patient Peripheral Nerve Block: Patient did not receive a nerve block
[2024-11-09] MEDS: oxyCODONE 5 MG TAB PO ×2 (15:17→16:22)
[2024-11-09] MEDS: Cyclobenzaprine 10 MG TAB PO (16:42)
--- NOTE | 2024-11-09 17:01 | NUR.NOTE ---
Administered Cyclobenzaprine 10mg PO x1 and performed sacral massage for back pain. Pain is rated at 8 out of 10, constant and aching.
== END 2024-11-09 17:58 | disposition home or self-care (01) ==
PROVIDERS: PCP Nurse Practitioner Family; Visit Provider Student in an Organized Health Care Education/Training Program
PROC: (CPT 27385; principal; 2024-11-09 10:00)
DX: S76.311A Strain of muscle, fascia and tendon of the posterior muscle group at thigh level, right thigh, initial encounter (principal); X58.XXXA Exposure to other specified factors, initial encounter
CPT/HCPCS: 27385; J0131; J0690; J1100; J1171; J1885; J2003; J2250; J2405; J2704; J3010; J3475

== ENCOUNTER 2024-12-06 01:45 | Outpatient (CLI) | payer BC, SELFPAY ==
--- NOTE | 2024-12-06 | DI.US_ITS ---
Exam(s) MG MAMMO SCREEN CALL BACK UNI US BREAST RT LIMITED EXAM: MG MAMMO SCREEN CALL BACK UNI and U/S breast RT limited CLINICAL HISTORY: NEW 8MM NODULE RT BREAST R92.8 ABNL MAMMO. TECHNIQUE: Craniocaudal and mediolateral oblique Full Field Digital Mammography views of the right breast with Computer Aided Diagnosis followed by Tomosynthesis and limited right breast ultrasound. COMPARISON: Comparison is made with prior mammograms. FINDINGS: Mammography/Tomosynthesis: Masses/Architectural Distortion: There is a well-circumscribed ovoid 5 mm nodule in the medial right breast which persists. There are no associated microcalcifications or areas of architectural distortion. Microcalcifictions: No suspicious pleomorphic-type are seen. Skin Thickening/Nipple Retraction: None. Limited right breast US: Echotexture: Normal appearance of the glandular tissue. Shadowing: No suspicious foci. Cyst: None. Solid lesions: At the 2 o'clock position of the right breast 8 cm from the nipple, there is a well-circumscribed radially oriented hypoechoic 5 x 2 x 6 mm nodule. It is avascular. It would appear to correspond to the mammographic finding. Ductal dilation: None. IMPRESSION: 1. 6 mm nodule at the 2 o'clock position of the right breast which would appear cord to correspond to the mammographic abnormality. This likely represents a benign lesion such as a fibroadenoma or intraparenchymal lymph node. 2. No findings are seen to suggest malignancy at this time. 3. A six-month follow-up mammogram and ultrasound are requested for re- evaluation. 4. The findings were discussed with the patient on the date of the examination. BI-RADS Category 3 - 6 month - Probably Benign Finding: Recommend follow-up imaging in 6 months Breast Density - Category C - The breast are heterogeneously dense, which may obscure small masses. Breast density Category C or D implies that the patient has dense breast tissue. Dense breast tissue can make it harder to find cancer on a mammogram. Dense breast tissue is also associated with an increased risk of breast cancer. This information about the result of the mammogram report was provided to the patient to raise their awareness. Use this report when you speak with the patient about their risks for breast cancer, which includes their family history. At that time, you may recommend additional screening tests (Ultrasound or MRI) as these tests may add significant information. A negative radiographic report should not delay biopsy if a dominant or clinically suspicious mass is present. Up to ten percent of cancers are not identified on mammography. A negative report may reinforce clinical impression. Adenosis and dense breasts may obscure an underlying neoplasm. False positive reports average 6 to 10%. Patient will receive a letter notifying them of these results.
== END 2024-12-06 02:05 ==
LOC: DI 01:46
PROVIDERS: PCP Nurse Practitioner Family; Visit Provider Nurse Practitioner Family
DX: Z12.31 Encounter for screening mammogram for malignant neoplasm of breast (principal); R92.8 Other abnormal and inconclusive findings on diagnostic imaging of breast
CPT/HCPCS: 76642; 77063; 77067

== ENCOUNTER 2024-12-20 12:05 | Outpatient (CLI) | payer BC, SELFPAY ==
[2024-12-20 12:19] LABS: Abs Immature Grans 0.02 10^3/uL (0.0-0.06); HCT 42.2 % (36.0-46.0); HGB 13.8 g/dL (11.2-15.7); Immature Grans % 0.3 %; MCH 28.9 pg (27.0-33.0); MCHC 32.7 % (32.0-36.0); MCV 89 fL (80-95); MPV 8.8 fL (8.0-11.0); Platelet Count 302 10^3/uL (130-400); RBC 4.77 10^6/uL (3.93-5.22); RDW 12.0 % (11.7-14.6); RDW-SD 38.5 fL; WBC 6.61 10^3/uL (4.4-10.8)
[2024-12-20 13:00] LABS: ALT 93 U/L (14-59); AST 28 U/L (15-37); Albumin 3.9 g/dL (3.4-5.0); Alkaline Phosphatase 138 U/L (46-116); Anion Gap 7.6 mmol/L (3-11); BUN 12 mg/dL (7-18); Bilirubin, Total 0.4 mg/dL (0.2-1.0); CO2 29.4 mmol/L (21.0-32.0); Calcium 8.8 mg/dL (8.5-10.1); Chloride 103 mmol/L (98-107); Estimated GFR 109.98 (mL/min/1.73m2); Glucose 98 mg/dL (74-106); Potassium 4.4 mmol/L (3.5-5.1); Sodium 140 mmol/L (136-145); Total Protein 7.8 g/dL (6.4-8.2)
== END 2024-12-20 12:06 | disposition home or self-care (01) ==
LOC: LBO 12:05
PROVIDERS: PCP Nurse Practitioner Family; Visit Provider Physical Therapy Assistant
DX: T81.30XA Disruption of wound, unspecified, initial encounter (principal)
CPT/HCPCS: 36415; 80053; 85025